=== PATIENT | female | born 1990 | race Caucasian/White ===

== ENCOUNTER 2016-07-31 14:08 | Emergency (ER) | payer MEDICAID, OTHER ==
[2016-07-31 17:47] LABS: Hematocrit 34 % (35-47); Hemoglobin 11.4 g/dl (12.0-16.0); Mean Corpuscular HGB Conc 34 g/dl (31-36); Mean Corpuscular Hemoglobin 28 pg (27-31); Mean Corpuscular Volume 83 fL (80-97); Mean Platelet Volume 10 um3 (7.4-10.4); Red Cell Distribution Width 13 % (10.5-15); White Blood Count 10.3 10^3/ul (3.5-10.8)
[2016-07-31 17:51] LABS: Urine Bacteria 1+ (Absent); Urine Bilirubin Negative (Negative); Urine Glucose Negative (Negative); Urine Nitrite Negative (Negative)
[2016-07-31 17:58] LABS: ALT 9 U/L (7-52); AST 15 U/L (13-39); Albumin 3.1 g/dL (3.2-5.2); Alkaline Phosphatase 49 U/L (34-104); Anion Gap 7 mmol/L (2-11); BUN/Creatinine Ratio 15.6 (8-20); Blood Urea Nitrogen 7 mg/dL (6-24); C Reactive Protein 6.68 mg/L (< 5.00); CO2 Carbon Dioxide 21 mmol/L (22-32); Calcium 9.2 mg/dL (8.6-10.3); Chloride 105 mmol/L (101-111); Creatine Kinase 24 U/L (10-223); EGFR African American 218.3 (>60); EGFR Non-African American 169.8 (>60); Globulin 3.2 g/dL (2-4); Glucose 104 mg/dL (70-100); Lipase 26 U/L (11.0-82.0); Potassium 3.7 mmol/L (3.5-5.0); Sodium 133 mmol/L (133-145); Total Protein 6.3 g/dL (6.4-8.9)
--- NOTE | 2016-07-31 18:15 | RAD ---
INDICATION: Bilateral tightness behind the knees. Leg swelling. COMPARISON: None. TECHNIQUE: Henriquez scale, color Doppler, and spectral analysis of the deep veins of the bilateral lower extremities. Vessel compression, phasicity, and augmentation assessed. REPORT: The right common femoral, great saphenous, profunda femoral, femoral, popliteal, peroneal, and posterior tibial veins are patent. The left common femoral, great saphenous, profunda femoral, femoral, popliteal, peroneal, and posterior tibial veins are patent. IMPRESSION: No evidence for right or left lower extremity deep venous thrombosis.
--- NOTE | 2016-07-31 19:24 | RAD ---
Indication: Chest pain. Shortness of breath. RIGHT leg pain and swelling. Elevated blood pressure. Comparison: None. Technique: Upright AP 1845 hours Report: Suboptimal inspiration with crowding of the pulmonary markings. Mild alveolar consolidation at the LEFT lung base may represent atelectasis or potentially pneumonia. Grossly clear pleural spaces. Negative for pneumothorax. The heart, pulmonary vasculature, and mediastinal contours are unremarkable. IMPRESSION: Mild alveolar consolidation at the LEFT lung base may represent atelectasis or potentially pneumonia. Consider standing PA and lateral chest radiographs for further assessment.
--- NOTE | 2016-07-31 19:32 | ED ---
- HPI Summary HPI Summary: Patient is a who is 24 weeks and 7 months post- with a CC of 2-3 weeks SOB, SAUCEDO, LUQ pain, leg swelling and "tightness" behind knees bilaterally. She delivered at 34 weeks with pre-eclampsia and was discharged home on 200mg labetolol BID. Dr. Vega was OBGYN. This , she is being seen in [place] for a high risk . She also has been dx with placenta previa. She notes to some foamy urine, but otherwise denies urinary symptoms. She is to have a kidney biopsy after delivery, but is unsure why. Today her BP's are ranging from 160/95 to 180/110. Denies fever. Denies visual disturbances. After calling her high risk OBGYN, she was sent here to r/o DVT's. Past medical history includes substance abuse. Denies current smoking, drugs or alcohol. UTD flu shot. Denies sick contacts. - History of Current Complaint Chief Complaint: EDExtremityLower Stated Complaint: 26WKS PREG/DIFF BREATHING/SWELLING Hx Obtained From: Patient Chief Complaint: Other: - concern for DVT's and pre-eclampsia Onset/Duration: Started Weeks Ago - 3 weeks ago Timing: Intermittent Severity: Moderate Current Severity: Moderate Pain Intensity: 4 Location of Pain: Left Side - upper quadrant Character: Cramping Aggravating Factors: Nothing Alleviating Factors: Nothing Associated Signs and Symptoms: Positive: Urinary Symptoms - foamy urine - Assessment Hx Now: Yes Expected Date of Delivery: 11/20/16 Hx : 4 Hx Para: 1 SAB: 2 IEA: 0 History of Ectopic : No Hx Pelvic Inflammatory Disease: No Vaginal Bleeding Amount: None Contraction Intensity: No Contractions Contraction Pattern: No Contractions Hx Hysterectomy: No History of STI/STD: No - Risk Factors Ovarian Torsion Risk Factor: Reproductive Age - Additional Pertinent History Referred By: Other - OBFYN in [place] Maternal Blood Type and Rh: O Positive Gestational Diabetes: No Have You Ever Been Treated for Depression: No - Allergies/Home Medications Allergies/Adverse Reactions: Allergies Allergy/AdvReac Type Severity Reaction Status Date / Time No Known Allergies Allergy Verified 06/28/16 17:03 PMH/Surg Hx/FS Hx/Imm Hx Previously Healthy: Yes Endocrine/Hematology History: Denies: Hx Diabetes, Hx Thyroid Disease Cardiovascular History: Denies: Hx Hypertension Respiratory History: Denies: Hx Asthma, Hx Chronic Obstructive Pulmonary Disease (COPD) GI History: Denies: Hx Ulcer History: Reports: Other Problems/Disorders - Proteinuria, in process of w/ u, preeclampsia Psychiatric History: Reports: Hx Depression - no record of treatment Denies: Hx Anxiety, Hx Attention Deficit Hyperactivity Disorder, Hx Eating Disorder, Hx Panic Disorder, Hx Post Traumatic Stress Disorder, Hx Inpatient Treatment, Hx Community Mental Health Tx, Hx Schizophrenia, Hx Bipolar Disorder , Hx Suicide Attempt, Hx of Violent Episodes Against Others, Hx Substance Abuse , Other Psychiatric Issues/Disorders - Immunization History Date of Tetanus Vaccine: up to date Infectious Disease History: No Infectious Disease History: Denies: Hx Hepatitis, Hx Human Immunodeficiency Virus (HIV), Traveled Outside the [place] in Last 30 Days - Family History Known Family History: Positive: None - denies heart disease, and dm Negative: Renal Disease - Social History Occupation: Unemployed Lives: Alone Alcohol Use: None Hx Substance Use: No Substance Use Type: Reports: None Hx Tobacco Use: No Smoking Status (MU): Never Smoked Tobacco Do You Chew or Dip Tobacco: No Have You Chewed or Dipped Tobacco in the LAST YEAR: No Have You Smoked in the Last Year: No Household Exposure: No Review of Systems Constitutional: Negative Eyes: Negative Cardiovascular: Negative Positive: Shortness Of Breath Positive: Abdominal Pain - LUQ Positive: other - foamy urine Positive: Edema - pedal edema Skin: Negative Neurological: Negative Positive: Anxious - regarding possibility of pre-eclampsia All Other Systems Reviewed And Are Negative: Yes Physical Exam - Physical Exam Triage Information Reviewed: Yes Vital Signs Reviewed: Yes Appearance: Positive: Well-Appearing, No Pain Distress, Well-Nourished Skin: Positive: Warm, Skin Color Reflects Adequate Perfusion Head/Face: Positive: Normal Head/Face Inspection Eyes: Positive: Normal, EOMI, KAI, Conjunctiva Clear Neck: Positive: Supple, Nontender, No Lymphadenopathy Respiratory/Lung Sounds: Positive: Clear to Auscultation, Breath Sounds Present Cardiovascular: Positive: Normal Abdomen Description: Positive: Soft, Other: - tenderness in LUQ upon palpation Musculoskeletal: Positive: Edema Left, Edema Right, Other - tenderness behind right popliteal Neurological: Positive: Normal, Facial Symmetry, Speech Normal Psychiatric: Positive: Anxious AVPU Assessment: Alert Diagnostics - Vital Signs Vital Signs Temp Pulse Resp BP Pulse Ox 07/31/16 18:30 90 22 176/106 97 07/31/16 18:00 87 28 174/98 97 07/31/16 17:30 79 28 166/103 98 07/31/16 17:00 93 21 160/94 99 07/31/16 16:37 19 165/87 07/31/16 15:01 98.4 F 101 18 181/110 100 - Laboratory Lab Results: Lab Results 07/31/16 07/31/16 07/31/16 Range/Units 16:45 16:45 16:45 WBC 10.3 (3.5-10.8) 10^3/ul RBC 4.10 (4.0-5.4) 10^6/ul Hgb 11.4 L (12.0-16.0) g/dl Hct 34 L (35-47) % MCV 83 (80-97) fL MCH 28 (27-31) pg MCHC 34 (31-36) g/dl RDW 13 (10.5-15) % Plt Count 178 (150-450) 10^3/ul MPV 10 (7.4-10.4) um3 Neut % (Auto) 70.8 (38-83) % Lymph % (Auto) 21.2 L (25-47) % [place] % (Auto) 6.5 (1-9) % Eos % (Auto) 1.2 (0-6) % Baso % (Auto) 0.3 (0-2) % Absolute Neuts (auto) 7.3 (1.5-7.7) 10^3/ul Absolute Lymphs (auto) 2.2 (1.0-4.8) 10^3/ul Absolute Monos (auto) 0.7 (0-0.8) 10^3/ul Absolute Eos (auto) 0.1 (0-0.6) 10^3/ul Absolute Basos (auto) 0 (0-0.2) 10^3/ul Absolute Nucleated RBC 0.01 10^3/ul Nucleated RBC % 0.1 INR (Anticoag Therapy) 0.93 (0.89-1.11) Sodium 133 (133-145) mmol/L Potassium 3.7 (3.5-5.0) mmol/L Chloride 105 (101-111) mmol/L Carbon Dioxide 21 L (22-32) mmol/L Anion Gap 7 (2-11) mmol/L BUN 7 (6-24) mg/dL Creatinine 0.45 L (0.51-0.95) mg/dL Est GFR ( Amer) 218.3 (>60) Est GFR (Non-Af Amer) 169.8 (>60) BUN/Creatinine Ratio 15.6 (8-20) Glucose 104 H (70-100) mg/dL Calcium 9.2 (8.6-10.3) mg/dL Total Bilirubin 0.20 (0.2-1.0) mg/dL Direct Bilirubin 0.00 L (0.03-0.18) mg/dL Indirect Bilirubin Not Reportable AST 15 (13-39) U/L ALT 9 (7-52) U/L Alkaline Phosphatase 49 (34-104) U/L Total Creatine Kinase 24 (10-223) U/L C-Reactive Protein 6.68 H (< 5.00) mg/L B-Natriuretic Peptide ( - 100) pg/mL Total Protein 6.3 L (6.4-8.9) g/dL Albumin 3.1 L (3.2-5.2) g/dL Globulin 3.2 (2-4) g/dL Albumin/Globulin Ratio 1.0 (1-3) Lipase 26 (11.0-82.0) U/L Urine Color Urine Appearance Urine pH (5-9) Ur Specific [place] (1.010-1.030) Urine Protein (Negative) Urine Ketones (Negative) Urine Blood (Negative) Urine Nitrate (Negative) Urine Bilirubin (Negative) Urine Urobilinogen (Negative) Ur Leukocyte Esterase (Negative) Urine WBC (Auto) (Absent) Urine RBC (Auto) (Absent) Ur Squamous Epith Cells (Absent) Urine Bacteria (Absent) Urine Glucose (Negative) 07/31/16 07/31/16 Range/Units 16:45 17:33 WBC (3.5-10.8) 10^3/ul RBC (4.0-5.4) 10^6/ul Hgb (12.0-16.0) g/dl Hct (35-47) % MCV (80-97) fL MCH (27-31) pg MCHC (31-36) g/dl RDW (10.5-15) % Plt Count (150-450) 10^3/ul MPV (7.4-10.4) um3 Neut % (Auto) (38-83) % Lymph % (Auto) (25-47) % [place] % (Auto) (1-9) % Eos % (Auto) (0-6) % Baso % (Auto) (0-2) % Absolute Neuts (auto) (1.5-7.7) 10^3/ul Absolute Lymphs (auto) (1.0-4.8) 10^3/ul Absolute Monos (auto) (0-0.8) 10^3/ul Absolute Eos (auto) (0-0.6) 10^3/ul Absolute Basos (auto) (0-0.2) 10^3/ul Absolute Nucleated RBC 10^3/ul Nucleated RBC % INR (Anticoag Therapy) (0.89-1.11) Sodium (133-145) mmol/L Potassium (3.5-5.0) mmol/L Chloride (101-111) mmol/L Carbon Dioxide (22-32) mmol/L Anion Gap (2-11) mmol/L BUN (6-24) mg/dL Creatinine (0.51-0.95) mg/dL Est GFR ( Amer) (>60) Est GFR (Non-Af Amer) (>60) BUN/Creatinine Ratio (8-20) Glucose (70-100) mg/dL Calcium (8.6-10.3) mg/dL Total Bilirubin (0.2-1.0) mg/dL Direct Bilirubin (0.03-0.18) mg/dL Indirect Bilirubin AST (13-39) U/L ALT (7-52) U/L Alkaline Phosphatase (34-104) U/L Total Creatine Kinase (10-223) U/L C-Reactive Protein (< 5.00) mg/L B-Natriuretic Peptide 42 ( - 100) pg/mL Total Protein (6.4-8.9) g/dL Albumin (3.2-5.2) g/dL Globulin (2-4) g/dL Albumin/Globulin Ratio (1-3) Lipase (11.0-82.0) U/L Urine Color Yellow Urine Appearance Cloudy Urine pH 5.0 (5-9) Ur Specific [place] 1.024 (1.010-1.030) Urine Protein 2+(100 mg/dl) H (Negative) Urine Ketones Negative (Negative) Urine Blood Negative (Negative) Urine Nitrate Negative (Negative) Urine Bilirubin Negative (Negative) Urine Urobilinogen Negative (Negative) Ur Leukocyte Esterase Trace H (Negative) Urine WBC (Auto) Trace(0-5/hpf) (Absent) Urine RBC (Auto) 1+(3-5/hpf) H (Absent) Ur Squamous Epith Cells Present H (Absent) Urine Bacteria 1+ H (Absent) Urine Glucose Negative (Negative) Result Diagrams: 07/31/16 16:45 07/31/16 16:45 Lab Statement: Any lab studies that have been ordered have been reviewed, and results considered in the medical decision making process. - Radiology No standard instances Xray Interpretation: No Acute Changes Radiology Interpretation Completed By: Radiologist - Ultrasound No standard instances Ultrasound Interpretation: No Acute Changes Ultrasound Interpretation Completed By: Radiologist Course/Dx - Course Course Of Treatment: Labs obtained. BP highest at 180/110. Higher risk d/t for DVT. US obtained with no acute findings. Consulted with OBGYN, Dr. White. Will transfer for further evaluation. Patient pre-eclamptic on previous resulting in early delivery at 34 weeks. Patient discharged with labetolol. Today, proteinuria at 2+, however did not use straight cath. Dr. Marianoki previous OBGYN. She is now being seen in [facility] for high risk . DVT unlikely d/ t negative US. No current medications for HTN. Will defer to OBGYN for further decision making. Hx of placenta previa. Assessment/Plan: OBGYN to see now. - Differential Diagnosis/HQI/PQRI: Preeclampsia, HELLP Syndrome, Placenta Previa, Early - Diagnoses Provider Diagnoses: High blood pressure affecting in second trimester, antepartum Discharge - Discharge Plan Condition: Stable Disposition: HOME Patient Education Materials: Preeclampsia (ED) Additional Instructions: You have been transferred to OBGYN care for further evaluation.
[2016-07-31 20:18] VITALS: BP 166/109
== END 2016-07-31 20:17 | disposition home or self-care (01) ==
LOC: ED 14:08
DX: O16.2 Unspecified maternal hypertension, second trimester (principal); Z3A.24 24 weeks gestation of pregnancy; O44.02 Complete placenta previa NOS or without hemorrhage, second trimester
CPT/HCPCS: 36415; 71010; 80053; 81003; 81015; 82248; 82550; 83690; 83880; 84550; 85025; 85610; 86140; 87086; 93970; 99282

== ENCOUNTER 2018-01-30 13:57 | Emergency (ER) | payer OTHER ==
--- OUTSIDE RECORDS SUMMARY | 2018-01-30 14:05 | XMS REPORT ---
:1990 External Reference #:[id number] Author Organization [facility] Address [address] [place] [address] Phone [phone] Care Team Providers Name Role Phone Jaspal Taylor MD Primary Care Physician Unavailable Payers Type Date Identification Numbers Payment Provider Subscriber Commercial Policy Number: [id number] Jamal [employer] Group Number: [id number] PayID: [id number] [place] [address] Problems Date Description Provider Status Onset: 01/17/2015 Depressive disorder Babatunde Varela NP Active Onset: 01/17/2015 Amenorrhea Babatunde Varela NP Active Note: states this has been a problem since menarche irregular menses Onset: 02/15/2015 Polycystic ovaries Babatunde Varela NP Active Note: PCOS Onset: 02/25/2016 Postconcussion syndrome Jaspal Taylor M.D. Active Onset: 02/25/2016 Posttraumatic headache Jaspal Taylor M.D. Active Onset: 04/30/2016 Patient currently Babautnde Varela NP Resolved Resolved: 10/09/2016 Onset: 08/02/2016 Gestational proteinuria Brandyn Mann M.D.,FACP Resolved Resolved: 10/09/2016 Family History Date Family Member(s) Problem(s) Comments Father Diabetes Type II Father 49 Father Hypertension Father Hypercholesterolemia Father Cerebrovascular Accident (CVA) Mother 47 Paternal Grandmother 75 Maternal Grandmother breast cancer Social History Type Date Description Comments Marital Status Single Lives With Alone Lives With Sons Occupation telemarketing and interviewer ETOH Use Denies alcohol use Smoking Patient is a former smoker Recreational Drug Use Denies Drug Use Daily Caffeine occasional soda Exercise Type/Frequency Does not exercise Allergies, Adverse Reactions, Alerts Date Description Reaction Status Severity Comments 01/17/2015 NKDA active Medications Medication Date Status Form Strength Qnty SIG Indications Ordering Provider Metformin HCL 01/06/ Active Tablets 500mg 30tab 1 by mouth Zsofia 2018 s every day PONCHO Márquez Accu-Check 01/05/ Active Device 1unit use devise E11.65 Zsofia Glucose Monitor 2018 s as Willi, instructed PONCHO Accu-Check 01/05/ Active Strips 200un check BS as E11.65 Sharmaineofia Compactstrips 2018 its ordered PONCHO Márquez Accu-Check 01/05/ Active Misc 100un use with E11.65 Sharmaineofia Kristin Lancet 2018 its glucometer Dasha Márquez as PONCHO instructed Fluconazole 12/15/ Active Tablets 150mg 2tabs one tab by N77.1 Zsofia 2018 mouth today, Willi, may repeat RAW SAMPLER in 3 days as needed Hydroxyzine HCL 12/15/ Active Tablets 25mg 30tab take one F41.9 Zsofia 2017 s tablet by Willi, mouth once RAW SAMPLER daily as needed Wellbutrin XL 12/15/ Active Tablets 150mg 30tab 1 tab po qd 2017 ER 24HR s in the Willi, morning RAW SAMPLER Anusol-HC 12/15/ Active Cream 2.5% 30gm apply to K62.5 2017 hemorrhoids Willi, 2x daily as RAW SAMPLER needed Hydrocodone-Immanuel 11/16/ Active Tablets 5-325mg 14tab 1 tab every H66.92 Jaspal taminophen 2018 s 8h as needed Casandra Taylor Hydroxyzine HCL 05/04/ Active Tablets 50mg 90tab take 1 tab F41.9 Zsofia 2018 s by mouth 3x Willi, daily for RAW SAMPLER anxiety as needed Hydroxyzine HCL 05/04/ Active Tablets 50mg 60tab take 1 tab F41.9 Zsofia 2018 s by mouth at [facility], night for RAW SAMPLER anxiety as needed Tylenol Extra 02/27/ Active Tablets 500mg 2 tablets by G44.301 Babatunde Strength 2016 mouth every Vincentian, 6 hours GSE MECHANIC three time a day as needed first Glipizide 01/05/ Hx Tablets 5mg 30tab take 1 E11.65 Zsofia 2018 - s tablet by Willi, 01/06/ mouth every RAW SAMPLER 2018 day after breakfast Amoxicillin/Cla 11/16/ Hx Tablets 875-125mg 20tab 1 by mouth H66.92 Jaspla vulanate 2018 - s twice a day Pachikara Potassium 12/15/ , Casandra 2017 Zoloft 07/02/ Hx Tablets 25mg 1 po qd; Other 2016 - Rx'd by high 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 Provider 2018 Hydrocodone-Immanuel 02/24/ Hx Tablets 5-325mg 20tab 1 tab every G44.301 Jaspal taminophen 2016 - s 12h as Pachikara 03/10/ needed , Casandra 2015 Wellbutrin XL 02/03/ Hx Tablets 150mg 90tab 1 tab po qd Babatunde 2016 - ER 24HR s in the Vincentian, 07/02/ morning GSE MECHANIC 2015 Provera 01/28/ Hx Tablets 10mg 10tab 1 tablet po Babatunde 2015 - s bid x's 5 Vincentian, 02/02/ days GSE MECHANIC 2014 Bupropion HCL 01/17/ Hx Tablets 150mg 60tab 1 tab by Babatunde ER (SR) 2015 - ER 12HR s mouth twice Vincentian, 02/03/ a day GSE MECHANIC 2015 Ventolin HFA / Hx Aerosol 108(90Base 2 puffs by Unknown 0000 - ) mcg/Act mouth four 02/03/ times a day 2016 as needed Labetalol HCL / Hx Tablets 200mg Kristel 0000 - Ilan 02/24/ 2016 Tramadol HCL / Hx Tablets 50mg 1 tablets Unknown 0000 - every 6 0816/ hours as 2016 needed Vital Signs Date Vital Result Comment 01/05/2018 Height 65 inches 5'5" Weight 198.38 lb Heart Rate 113 /min BP Systolic 126 mmHg BP Diastolic 80 mmHg O2 % BldC Oximetry 98 % BMI (Body Mass Index) 33.0 kg/m2 12/15/2017 Height 65 inches 5'5" Weight 199.12 lb Heart Rate 110 /min BP Systolic Sitting 122 mmHg BP Diastolic Sitting 80 mmHg O2 % BldC Oximetry 98 % BMI (Body Mass Index) 33.1 kg/m2 11/16/2017 Height 65 inches 5'5" Weight 199.00 lb Heart Rate 110 /min BP Systolic 124 mmHg BP Diastolic 80 mmHg Body Temperature 98.7 F O2 % BldC Oximetry 97 % BMI (Body Mass Index) 33.1 kg/m2 11/12/2017 Weight 190.00 lb per pt Heart Rate 111 /min BP Systolic Sitting 138 mmHg BP Diastolic Sitting 80 mmHg Body Temperature 97.3 F O2 % BldC Oximetry 96 % 03/10/2016 Weight 191.38 lb Heart Rate 102 /min BP Systolic Sitting 120 mmHg BP Diastolic Sitting 78 mmHg Body Temperature 98.0 F O2 % BldC Oximetry 98 % 02/28/2016 Height 65.5 inches 5'5.50" Weight 189.38 lb Heart Rate 92 /min BP Systolic Sitting 138 mmHg BP Diastolic Sitting 98 mmHg Body Temperature 98.3 F O2 % BldC Oximetry 99 % BMI (Body Mass Index) 31.0 kg/m2 02/25/2016 Height 65.5 inches 5'5.50" Weight 188.00 lb Heart Rate 110 /min BP Systolic Sitting 138 mmHg BP Diastolic Sitting 92 mmHg Body Temperature 97.9 F O2 % BldC Oximetry 98 % BMI (Body Mass Index) 30.8 kg/m2 02/04/2016 Height 65.5 inches 5'5.50" Weight 188.50 lb Heart Rate 102 /min BP Systolic Sitting 120 mmHg BP Diastolic Sitting 88 mmHg Body Temperature 97.4 F O2 % BldC Oximetry 96 % BMI (Body Mass Index) 30.9 kg/m2 02/14/2015 Height 65.5 inches 5'5.50" Weight 195.00 lb Heart Rate 112 /min BP Systolic Sitting 118 mmHg BP Diastolic Sitting 70 mmHg Body Temperature 98.0 F O2 % BldC Oximetry 98 % BMI (Body Mass Index) 32.0 kg/m2 01/17/2015 Height 65.5 inches 5'5.50" Weight 199.25 lb Heart Rate 100 /min BP Systolic Sitting 142 mmHg BP Diastolic Sitting 86 mmHg Body Temperature 97.7 F O2 % BldC Oximetry 98 % BMI (Body Mass Index) 32.6 kg/m2 Results Test Date Test Result H/L Range Note Laboratory test finding 01/05/2018 Hemoglobin A1c 9.6 High 5-7 Total Protein 24HR Urine 12/17/2017 Urine Collection Time 24 hr Urine Total Volume 2250 mL Urine Random Total Protein 43 mg/dL Urine Total Protein/24HR 967 mg/24Hr High 0-165 Creatinine Clearance 12/17/2017 Urine Collection Time 24 hr Urine Total Volume 2250 mL Creatinine 0.57 mg/dL 0.51-0.95 Urine Random Creatinine 81.20 mg/dL Creatinine Clearance 223 mL/min High 88-128 Laboratory test finding 12/17/2017 LDL Cholesterol Direct 64 mg/dL 1 Herpes Simplex Igm Screen Negative Negative 2 Lipid Profile (Trig/Chol/HDL) 12/17/2017 Triglycerides 729 mg/dL 3 Cholesterol 187 mg/dL 4 HDL Cholesterol 24.6 mg/dL 5 LDL Cholesterol (SEE NOTE) mg/dL 6 Comp Metabolic Panel 12/17/2017 Sodium 135 mmol/L Low 139-145 Potassium 4.3 mmol/L 3.5-5.0 Chloride 100 mmol/L Low 101-111 Co2 Carbon Dioxide 24 mmol/L 22-32 Anion Gap 11 mmol/L 2-11 Glucose 273 mg/dL High 70-100 Blood Urea Nitrogen 9 mg/dL 6-24 Creatinine 0.52 mg/dL 0.51-0.95 BUN/Creatinine Ratio 17.3 8-20 Calcium 9.8 mg/dL 8.6-10.3 Total Protein 7.6 g/dL 6.4-8.9 Albumin 4.4 g/dL 3.2-5.2 Globulin 3.2 g/dL 2-4 Albumin/Globulin Ratio 1.4 1-3 Total Bilirubin 1.40 mg/dL High 0.2-1.0 Alkaline Phosphatase 100 U/L 34-104 Alt 109 U/L High 7-52 Ast 102 U/L High 13-39 Egfr Non- 142.5 >60 Egfr 183.3 >60 7 Herpes Simplex Type 1&2 12/17/2017 Herpes Simplex Virus I Positive Negative Igg IgG AB Herpes Simplex Virus II IgG AB Positive Negative 8 Laboratory test 07/31/2016 Urine Protein 3+(>=500 mg/dL) Negative finding Urine Drug SCR ED & 07/31/2016 Amphetamine Ur Screen None Detected None Detect Pain Clinic Barbiturates Urine Screen None Detected None Detect Benzodiazepine Urine Screen None Detected None Detect Urine Cannabinoids Screen None Detected None Detect Urine Cocaine Screen None Detected None Detect Urine Opiates Screen None Detected None Detect Urine Phencyclidine Screen None Detected None Detect 9 Urine Culture And 07/31/2016 Urine Culture SEE RESULT BELOW 10 Sensitivities Laboratory test finding 07/31/2016 B-Type Natriuretic 42 pg/mL 11 Peptide BNP Uric Acid 6.0 mg/dL 2.3-6.6 Comp Metabolic Panel 07/31/2016 Sodium 133 mmol/L 133-145 Potassium 3.7 mmol/L 3.5-5.0 Chloride 105 mmol/L 101-111 Co2 Carbon Dioxide 21 mmol/L Low 22-32 Anion Gap 7 mmol/L 2-11 Glucose 104 mg/dL High 70-100 Blood Urea Nitrogen 7 mg/dL 6-24 Creatinine 0.45 mg/dL Low 0.51-0.95 BUN/Creatinine Ratio 15.6 8-20 Calcium 9.2 mg/dL 8.6-10.3 Total Protein 6.3 g/dL Low 6.4-8.9 Albumin 3.1 g/dL Low 3.2-5.2 Globulin 3.2 g/dL 2-4 Albumin/Globulin Ratio 1.0 1-3 Total Bilirubin 0.20 mg/dL 0.2-1.0 Alkaline Phosphatase 49 U/L 34-104 Alt 9 U/L 7-52 Ast 15 U/L 13-39 Egfr Non- 169.8 >60 Egfr 218.3 >60 12 Laboratory test finding 07/31/2016 Lipase 26 U/L 11.0-82.0 Creatine Kinase(CK) 24 U/L 10-223 C Reactive Protein 6.68 mg/L High < 5.00 13 Liver Function Panel 07/31/2016 Direct Bilirubin 0.00 mg/dL Low 0.03-0.18 Urinalysis Profile 07/31/2016 Urine Color Yellow Urine Appearance Cloudy Urine Specific Foley 1.024 1.010-1.030 Urine pH 5.0 5-9 Urine Urobilinogen Negative Negative Urine Ketones Negative Negative Urine Protein 2+(100 mg/dL) Negative Urine Leukocytes Trace Negative Urine Blood Negative Negative Urine Nitrite Negative Negative Urine Bilirubin Negative Negative Urine Glucose Negative Negative Urine White Blood Cell Trace(0-5/hpf) Absent Urine Red Blood Cell 1+(3-5/hpf) Absent Urine Bacteria 1+ Absent Urine Squamous Epithelial Cell Present Absent CBC Auto Diff 07/31/2016 White Blood Count 10.3 10^3/uL 3.5-10.8 Red Blood Count 4.10 10^6/uL 4.0-5.4 Hemoglobin 11.4 g/dL Low 12.0-16.0 Hematocrit 34 % Low 35-47 Mean Corpuscular Volume 83 fL 80-97 Mean Corpuscular Hemoglobin 28 pg 27-31 Mean Corpuscular HGB Conc 34 g/dL 31-36 Red Cell Distribution Width 13 % 10.5-15 Platelet Count 178 10^3/uL 150-450 Mean Platelet Volume 10 um3 7.4-10.4 Abs Neutrophils 7.3 10^3/uL 1.5-7.7 Abs Lymphocytes 2.2 10^3/uL 1.0-4.8 Abs Monocytes 0.7 10^3/uL 0-0.8 Abs Eosinophils 0.1 10^3/uL 0-0.6 Abs Basophils 0 10^3/uL 0-0.2 Abs Nucleated RBC 0.01 10^3/uL Granulocyte % 70.8 % 38-83 Lymphocyte % 21.2 % Low 25-47 Monocyte % 6.5 % 1-9 Eosinophil % 1.2 % 0-6 Basophil % 0.3 % 0-2 Nucleated Red Blood Cells % 0.1 Inr/Protime 07/31/2016 Inr 0.93 0.89-1.11 CBC Auto Diff 06/28/2016 White Blood Count 7.9 10^3/uL 3.5-10.8 Red Blood Count 4.15 10^6/uL 4.0-5.4 Hemoglobin 11.4 g/dL Low 12.0-16.0 Hematocrit 34 % Low 35-47 Mean Corpuscular Volume 82 fL 80-97 Mean Corpuscular Hemoglobin 28 pg 27-31 Mean Corpuscular HGB Conc 34 g/dL 31-36 Red Cell Distribution Width 14 % 10.5-15 Platelet Count 200 10^3/uL 150-450 Mean Platelet Volume 10 um3 7.4-10.4 Abs Neutrophils 5.2 10^3/uL 1.5-7.7 Abs Lymphocytes 1.9 10^3/uL 1.0-4.8 Abs Monocytes 0.6 10^3/uL 0-0.8 Abs Eosinophils 0.1 10^3/uL 0-0.6 Abs Basophils 0 10^3/uL 0-0.2 Abs Nucleated RBC 0 10^3/uL Granulocyte % 66.0 % 38-83 Lymphocyte % 23.6 % Low 25-47 Monocyte % 8.2 % 1-9 Eosinophil % 1.8 % 0-6 Basophil % 0.4 % 0-2 Nucleated Red Blood Cells % 0 Comp Metabolic Panel 06/28/2016 Sodium 133 mmol/L 133-145 Potassium 3.9 mmol/L 3.5-5.0 Chloride 104 mmol/L 101-111 Co2 Carbon Dioxide 21 mmol/L Low 22-32 Anion Gap 8 mmol/L 2-11 Glucose 92 mg/dL 70-100 Blood Urea Nitrogen 8 mg/dL 6-24 Creatinine 0.41 mg/dL Low 0.51-0.95 BUN/Creatinine Ratio 19.5 8-20 Calcium 9.3 mg/dL 8.6-10.3 Total Protein 6.7 g/dL 6.4-8.9 Albumin 3.4 g/dL 3.2-5.2 Globulin 3.3 g/dL 2-4 Albumin/Globulin Ratio 1.0 1-3 Total Bilirubin 0.30 mg/dL 0.2-1.0 Alkaline Phosphatase 53 U/L 34-104 Alt 8 U/L 7-52 Ast 11 U/L Low 13-39 Egfr Non- 189.0 >60 Egfr 243.1 >60 14 Urinalysis Profile 06/28/2016 Urine Color Yellow Urine Appearance Clear Urine Specific Foley 1.024 1.010-1.030 Urine pH 7.0 5-9 Urine Urobilinogen Negative Negative Urine Ketones Negative Negative Urine Protein 2+(100 mg/dL) Negative Urine Leukocytes Negative Negative Urine Blood Negative Negative Urine Nitrite Negative Negative Urine Bilirubin Negative Negative Urine Glucose Negative Negative Urine White Blood Cell Trace(0-5/hpf) Absent Urine Red Blood Cell Trace(0-2/hpf) Absent Urine Bacteria 1+ Absent Urine Squamous Epithelial Cell Present Absent Urine Culture And 06/28/2016 Urine Culture SEE RESULT BELOW 15 Sensitivities Creatinine Clearance 05/10/2016 Urine Collection Time 24 Urine Total Volume 900 mL Urine Random Creatinine 210.57 mg/dL Creatinine 0.44 mg/dL Low 0.51-0.95 Creatinine Clearance 299 mL/min High 88-128 Urinalysis Profile 04/23/2016 Urine Color Yellow Urine Appearance Cloudy Urine Specific Foley 1.029 1.010-1.030 Urine pH 5.0 5-9 Urine Urobilinogen Negative Negative Urine Ketones Trace Negative Urine Protein 3+(>=500 mg/dL) Negative Urine Leukocytes Negative Negative Urine Blood Negative Negative Urine Nitrite Negative Negative Urine Bilirubin Negative Negative Urine Glucose Negative Negative Urine White Blood Cell Trace(0-5/hpf) Absent Urine Red Blood Cell 1+(3-5/hpf) Absent Urine Bacteria Absent Absent Urine Squamous Epithelial Cell Present Absent Urine Hyaline Casts Present Absent Laboratory test finding 02/04/2016 Test Urine negative CBC Auto Diff 12/28/2015 White Blood Count 10.1 10^3/uL 3.5-10.8 Red Blood Count 4.13 10^6/uL 4.0-5.4 Hemoglobin 11.8 g/dL Low 12.0-16.0 Hematocrit 35 % 35-47 Mean Corpuscular Volume 84 fL 80-97 Mean Corpuscular Hemoglobin 29 pg 27-31 Mean Corpuscular HGB Conc 34 g/dL 31-36 Red Cell Distribution Width 14 % 10.5-15 Platelet Count 185 10^3/uL 150-450 Mean Platelet Volume 10 um3 7.4-10.4 Abs Neutrophils 7.7 10^3/uL 1.5-7.7 Abs Lymphocytes 1.7 10^3/uL 1.0-4.8 Abs Monocytes 0.6 10^3/uL 0-0.8 Abs Eosinophils 0.1 10^3/uL 0-0.6 Abs Basophils 0.1 10^3/uL 0-0.2 Abs Nucleated RBC 0 10^3/uL Granulocyte % 76.0 % 38-83 Lymphocyte % 16.7 % Low 25-47 Monocyte % 5.6 % 1-9 Eosinophil % 0.6 % 0-6 Basophil % 1.1 % 0-2 Nucleated Red Blood Cells % 0 Urinalysis Profile 12/28/2015 Urine Color Saranya Urine Appearance Cloudy Urine Specific Foley 1.034 High 1.010-1.030 Urine pH 6.0 5-9 Urine Urobilinogen Negative Negative Urine Ketones Negative Negative Urine Protein 3+(>=500 mg/dL) Negative Urine Leukocytes Negative Negative Urine Blood Negative Negative Urine Nitrite Negative Negative Urine Bilirubin Negative Negative Urine Glucose Negative Negative Urine White Blood Cell 1+(6-10/hpf) Absent Urine Red Blood Cell 1+(3-5/hpf) Absent Urine Bacteria Absent Absent Urine Squamous Epithelial Cell Present Absent Urine Hyaline Casts Present Absent Comp Metabolic Panel 12/28/2015 Sodium 134 mmol/L 133-145 Potassium 4.2 mmol/L 3.5-5.0 Chloride 106 mmol/L 101-111 Co2 Carbon Dioxide 23 mmol/L 22-32 Anion Gap 5 mmol/L 2-11 Glucose 73 mg/dL 70-100 Blood Urea Nitrogen 6 mg/dL 6-24 Creatinine 0.49 mg/dL Low 0.51-0.95 BUN/Creatinine Ratio 12.2 8-20 Calcium 8.6 mg/dL 8.6-10.3 Total Protein 5.6 g/dL Low 6.4-8.9 Albumin 2.7 g/dL Low 3.2-5.2 Globulin 2.9 g/dL 2-4 Albumin/Globulin Ratio 0.9 Low 1-3 Total Bilirubin 0.40 mg/dL 0.2-1.0 Alkaline Phosphatase 64 U/L 34-104 Alt 14 U/L 7-52 Ast 16 U/L 13-39 Egfr Non- 155.2 >60 Egfr 199.5 >60 16 CBC Auto Diff 08/30/2015 White Blood Count 10.5 10^3/uL 3.5-10.8 Red Blood Count 3.90 10^6/uL Low 4.0-5.4 Hemoglobin 11.2 g/dL Low 12.0-16.0 Hematocrit 33 % Low 35-47 Mean Corpuscular Volume 85 fL 80-97 Mean Corpuscular Hemoglobin 29 pg 27-31 Mean Corpuscular HGB Conc 34 g/dL 31-36 Red Cell Distribution Width 13 % 10.5-15 Platelet Count 191 10^3/uL 150-450 Mean Platelet Volume 10 um3 7.4-10.4 Abs Neutrophils 7.5 10^3/uL 1.5-7.7 Abs Lymphocytes 2.4 10^3/uL 1.0-4.8 Abs Monocytes 0.5 10^3/uL 0-0.8 Abs Eosinophils 0.1 10^3/uL 0-0.6 Abs Basophils 0 10^3/uL 0-0.2 Abs Nucleated RBC 0.01 10^3/uL Granulocyte % 71.1 % 38-83 Lymphocyte % 23.0 % Low 25-47 Monocyte % 4.8 % 1-9 Eosinophil % 0.9 % 0-6 Basophil % 0.2 % 0-2 Nucleated Red Blood Cells % 0.1 Urinalysis Profile 08/30/2015 Urine Color Yellow Urine Appearance Cloudy Urine Specific Foley 1.025 1.010-1.030 Urine pH 5.0 5-9 Urine Urobilinogen Negative Negative Urine Ketones 1+ Negative Urine Protein Negative Negative Urine Leukocytes Negative Negative Urine Blood Negative Negative Urine Nitrite Negative Negative Urine Bilirubin Negative Negative Urine Glucose Negative Negative Comp Metabolic Panel 08/30/2015 Sodium 135 mmol/L 133-145 Potassium 3.6 mmol/L 3.5-5.0 Chloride 104 mmol/L 101-111 Co2 Carbon Dioxide 22 mmol/L 22-32 Anion Gap 9 mmol/L 2-11 Glucose 112 mg/dL High 70-100 Blood Urea Nitrogen 6 mg/dL 6-24 Creatinine 0.46 mg/dL Low 0.51-0.95 BUN/Creatinine Ratio 13.0 8-20 Calcium 9.3 mg/dL 8.6-10.3 Total Protein 6.6 g/dL 6.4-8.9 Albumin 3.8 g/dL 3.2-5.2 Globulin 2.8 g/dL 2-4 Albumin/Globulin Ratio 1.4 1-3 Total Bilirubin 0.30 mg/dL 0.2-1.0 Alkaline Phosphatase 41 U/L 34-104 Alt 11 U/L 7-52 Ast 14 U/L 13-39 Egfr Non- 166.9 >60 Egfr 214.6 >60 17 Laboratory test finding 06/27/2015 Abo/RH Type O Positive 18 Beta HCG (BHCG) Quantitative 96360.00 mIU/mL <5 18, 19 CBC No Diff 06/27/2015 White Blood Count 11.4 10^3/uL High 3.5-10.8 18 Red Blood Count 4.71 10^6/uL 4.0-5.4 18 Hemoglobin 13.0 g/dL 12.0-16.0 18 Hematocrit 41 % 35-47 18 Mean Corpuscular Volume 87 fL 80-97 18 Mean Corpuscular Hemoglobin 28 pg 27-31 18 Mean Corpuscular HGB Conc 32 g/dL 31-36 18 Red Cell Distribution Width 13 % 10.5-15 18 Platelet Count 205 10^3/uL 150-450 18 Mean Platelet Volume 10 um3 7.4-10.4 18 Basic Metabolic Panel 06/27/2015 Sodium 134 mmol/L 133-145 18 Potassium 3.8 mmol/L 3.5-5.0 18 Chloride 102 mmol/L 101-111 18 Co2 Carbon Dioxide 22 mmol/L 22-32 18 Anion Gap 10 mmol/L 2-11 18 Glucose 110 mg/dL High 70-100 18 Blood Urea Nitrogen 11 mg/dL 6-24 18 Creatinine 0.53 mg/dL 0.51-0.95 18 BUN/Creatinine Ratio 20.8 High 8-20 18 Calcium 9.0 mg/dL 8.6-10.3 18 Egfr Non- 141.7 >60 18 Egfr 182.3 >60 18, 20 FSH And LH 02/13/2015 FSH (Follicle Stim Hormone) 5.3 mIU/mL 21 LH (Lutenizing Hormone) 5.1 ?IU/mL 22 Testosterone Free & Total 02/13/2015 Free Testosterone ng/dl 0.7 ng/dL 0.3-1.9 23 Testosterone 20 ng/dL 8-60 24 Laboratory test finding 02/13/2015 Prolactin 12.7 ng/mL 1.0-25.0 Dhea Sulfate 144 g/dL 44-332 25 Lipid Profile (Trig/Chol/HDL) 01/18/2015 Triglycerides 237 mg/dL 26 Cholesterol 161 mg/dL 27 HDL Cholesterol 26.9 mg/dL 28 LDL Cholesterol 87 mg/dL 29 Basic Metabolic Panel 01/18/2015 Sodium 136 mmol/L 133-145 Potassium 4.0 mmol/L 3.5-5.0 Chloride 104 mmol/L 101-111 Co2 Carbon Dioxide 26 mmol/L 22-32 Anion Gap 6 mmol/L 2-11 Blood Urea Nitrogen 9 mg/dL 6-24 Creatinine 0.53 mg/dL 0.51-0.95 BUN/Creatinine Ratio 17.0 8-20 Calcium 9.1 mg/dL 8.6-10.3 Egfr Non- 143.0 >60 Egfr 183.8 >60 30 Laboratory test finding 01/18/2015 TSH (Thyroid Stim Horm) 1.13 ?IU/mL 0.34-5.60 31 CBC Auto Diff 01/18/2015 White Blood Count 9.1 10^3/uL 4.8-10.8 Red Blood Count 4.57 10^6/uL 4.0-5.4 Hemoglobin 12.9 g/dL 12.0-16.0 Hematocrit 40 % 35-47 Mean Corpuscular Volume 87 fL 80-97 Mean Corpuscular Hemoglobin 28 pg 27-31 Mean Corpuscular HGB Conc 33 g/dL 31-36 Red Cell Distribution Width 13 % 10.5-15 Platelet Count 229 10^3/uL 150-450 Mean Platelet Volume 10 um3 7.4-10.4 Abs Neutrophils 5.8 10^3/uL 1.5-7.7 Abs Lymphocytes 2.4 10^3/uL 1.0-4.8 Abs Monocytes 0.6 10^3/uL 0-0.8 Abs Eosinophils 0.2 10^3/uL 0-0.6 Abs Basophils 0 10^3/uL 0-0.2 Abs Nucleated RBC 0 10^3/uL Granulocyte % 63.8 % 38-83 Lymphocyte % 27.0 % 25-47 Monocyte % 6.5 % 1-9 Eosinophil % 2.3 % 0-6 Basophil % 0.4 % 0-2 Nucleated Red Blood Cells % 0 Laboratory test finding 01/18/2015 Glucose 102 mg/dL High 70-100 Laboratory test finding 01/17/2015 Cytology SEE RESULT BELOW 32 Gardnerella/Yeast: Vaginal Dna SEE RESULT BELOW 33 GC/Chlamydia Amplified Rna 01/17/2015 Chlamydia trachomatis Rna Negative Negative Neisseria gonorrhoeae (GC) Rna Negative Negative 34 Laboratory test finding 01/17/2015 Trichomonas vaginalis Rna Negative Negative 35 Laboratory test finding 01/17/2015 Test Urine negative Ua Routine 01/17/2015 Ua Specific Foley 1.020 Ua PH 5 Ua Color yellow Ua Appera clear Ua WBC neg Ua Protein neg Ua Glucose neg Ua Ketones neg Ua Bilirubin neg Ua Urobilinogen normal Ua Nitrite neg Ua Occult Blood neg 1 Desirable: <100 Near Optimal: 100-129 Borderline High: 130-159 High: 160-189 Very High: >189 2 ADDITIONAL INFORMATION This test has been modified from the drop press hand's instructions. Its performance characteristics were determined by [facility] in a manner consistent with CLIA requirements. This test has not been cleared or approved by the U.S. Food and Drug Administration. Test Performed by: [facility] [address] [place] [address] 3 Desirable: <150 Borderline High: 150-199 High: 200-499 Very High: >500 4 Desirable: <200 Borderline High: 200-239 High: >239 5 Low: <40 Desirable: 40-60 High: >60 6 Unable to calculate LDL as triglyceride is > 400 7 Because ethnic data is not always readily available, this report includes an eGFR for both -Americans and non- Americans. The National Kidney Disease Education Program (NKDEP) does not endorse the use of the MDRD equation for patients that are not between the ages of 18 and 70, are , have extremes of body size, muscle mass, or nutritional status, or are non- or non-. According to the National Kidney Foundation, irrespective of diagnosis, the stage of the disease is based on the level of kidney function: Stage Description GFR(mL/min/1.73 m(2)) 1 Kidney damage with normal or decreased GFR 90 2 Kidney damage with mild decrease in GFR 60-89 3 Moderate decrease in GFR 30-59 4 Severe decrease in GFR 15-29 5 Kidney failure <15 (or dialysis) 8 Test Performed by: [facility] [address] [place] [address] 9 The urine specimen was tested at the listed cutoffs: Drug class test level (ng/mL) Amphetamines 500 Barbiturates 200 Benzodiazepine metabolites 200 Cocaine metabolites 150 Cannabinoids 50 Opiates 300 Pcp 25 Specimen was received without chain of custody. Results should be used for medical purposes only. 10 SEE RESULT BELOW Name: SARANYA ELWIS : [address]: Patrick Horton MD Acct: [id number] Unit: [id number] AGE: 26 Location: ED Re07/31/16 SEX: F Status: DEP ER SPEC: [id number] RYAN: 07/31/16-[address]: Leslye W[place] REQ: [id number] RECD: 07/31/16 STATUS: BRADLEY FARIAS DR: Brandyn Horton MD _ SOURCE: URINE [facility]: ORDERED: Urine Culture Procedure Result Reported Site Urine Culture Final 08/02/16- 0940 ML No Growth (<1,000 CFU/mL) * ML - MAIN LAB ([facility]) . END OF REPORT * ML=Testing performed at Main Lab DEPARTMENT OF PATHOLOGY, [address] [place] [address] Sammy Hart M.D. Director [facility] # [id number] 11 >100 to <200 pg/mL: likely compensated congestive heart failure (CHF) 200 to 400 pg/mL: likely moderate CHF >400 pg/mL: likely moderate to severe CHF 12 Because ethnic data is not always readily available, this report includes an eGFR for both -Americans and non- Americans. The National Kidney Disease Education Program (NKDEP) does not endorse the use of the MDRD equation for patients that are not between the ages of 18 and 70, are , have extremes of body size, muscle mass, or nutritional status, or are non- or non-. According to the National Kidney Foundation, irrespective of diagnosis, the stage of the disease is based on the level of kidney function: Stage Description GFR(mL/min/1.73 m(2)) 1 Kidney damage with normal or decreased GFR 90 2 Kidney damage with mild decrease in GFR 60-89 3 Moderate decrease in GFR 30-59 4 Severe decrease in GFR 15-29 5 Kidney failure <15 (or dialysis) 13 Acute inflammation: >10.00 14 Because ethnic data is not always readily available, this report includes an eGFR for both -Americans and non- Americans. The National Kidney Disease Education Program (NKDEP) does not endorse the use of the MDRD equation for patients that are not between the ages of 18 and 70, are , have extremes of body size, muscle mass, or nutritional status, or are non- or non-. According to the National Kidney Foundation, irrespective of diagnosis, the stage of the disease is based on the level of kidney function: Stage Description GFR(mL/min/1.73 m(2)) 1 Kidney damage with normal or decreased GFR 90 2 Kidney damage with mild decrease in GFR 60-89 3 Moderate decrease in GFR 30-59 4 Severe decrease in GFR 15-29 5 Kidney failure <15 (or dialysis) 15 SEE RESULT BELOW Name: SARANYA LEWIS : [address]: Андрей Lezama MD Acct: [id number] Unit: [id number] AGE: 26 Location: ED Re06/28/16 SEX: F Status: DEP ER SPEC: [id number] RYAN: 06/28/16-[address]: Vashti WASHINGTON REQ: [id number] RECD: 06/28/16 STATUS: BRADLEY FARIAS DR: Papo Oneill MD _ SOURCE: URINE SPDESC: ORDERED: Urine Culture Procedure Result Reported Site Urine Culture Final 06/29/16- 1712 ML No Growth (<1,000 CFU/mL) * ML - MAIN LAB ([facility]) . END OF REPORT * ML=Testing performed at Main Lab DEPARTMENT OF PATHOLOGY, [address] [place] [address] Sammy Hart M.D. Director [facility] # [id number] 16 Because ethnic data is not always readily available, this report includes an eGFR for both -Americans and non- Americans. The National Kidney Disease Education Program (NKDEP) does not endorse the use of the MDRD equation for patients that are not between the ages of 18 and 70, are , have extremes of body size, muscle mass, or nutritional status, or are non- or non-. According to the National Kidney Foundation, irrespective of diagnosis, the stage of the disease is based on the level of kidney function: Stage Description GFR(mL/min/1.73 m(2)) 1 Kidney damage with normal or decreased GFR 90 2 Kidney damage with mild decrease in GFR 60-89 3 Moderate decrease in GFR 30-59 4 Severe decrease in GFR 15-29 5 Kidney failure <15 (or dialysis) 17 Because ethnic data is not always readily available, this report includes an eGFR for both -Americans and non- Americans. The National Kidney Disease Education Program (NKDEP) does not endorse the use of the MDRD equation for patients that are not between the ages of 18 and 70, are , have extremes of body size, muscle mass, or nutritional status, or are non- or non-. According to the National Kidney Foundation, irrespective of diagnosis, the stage of the disease is based on the level of kidney function: Stage Description GFR(mL/min/1.73 m(2)) 1 Kidney damage with normal or decreased GFR 90 2 Kidney damage with mild decrease in GFR 60-89 3 Moderate decrease in GFR 30-59 4 Severe decrease in GFR 15-29 5 Kidney failure <15 (or dialysis) 18 8 WKS /VOMITING 19 <5.0 Negative 5.0 - 25.0 Indeterminate (Repeat testing recommended after 72 hours) >25.0 Positive Perimenopausal women can display HCG levels of up to 20 mIU/mL 20 Because ethnic data is not always readily available, this report includes an eGFR for both -Americans and non- Americans. The National Kidney Disease Education Program (NKDEP) does not endorse the use of the MDRD equation for patients that are not between the ages of 18 and 70, are , have extremes of body size, muscle mass, or nutritional status, or are non- or non-. According to the National Kidney Foundation, irrespective of diagnosis, the stage of the disease is based on the level of kidney function: Stage Description GFR(mL/min/1.73 m(2)) 1 Kidney damage with normal or decreased GFR 90 2 Kidney damage with mild decrease in GFR 60-89 3 Moderate decrease in GFR 30-59 4 Severe decrease in GFR 15-29 5 Kidney failure <15 (or dialysis) 21 Normally menstruating females - Follicular phase 3 - 9 - Mid-cycle peak 4 - 23 - Luteal phase 1 - 6 Postmenopausal females 16 - 114 22 Normally menstruating females - Follicular Phase 1 - 18 - Mid-Cycle Peak 24 - 105 - Luteal Phase 0.6 - 20 Postmenopausal females 15 - 62 23 ADDITIONAL INFORMATION Testing performed by [facility]. 24 ADDITIONAL INFORMATION Testing performed by Liquid Chromatography-Tandem Mass Spectrometry (LC-MS/MS). Test Performed by: [place] [address] Secretarial Teacher: Patrick Pozo II, M.D., Ph.D. 25 Test Performed by: [address] [address] Secretarial Teacher: Patrick Pozo II, M.D., Ph.D. 26 Desirable <150 Borderline high 150-199 High 200-499 Very High >500 27 Desirable <200 Borderline high 200-239 High >239 28 Low <40 Desirable: 40-60 High: >60 29 Desirable: <100 mg/dL Near Optimal: 100-129 mg/dL Borderline High: 130-159 mg/dL High: 160-189 mg/dL Very High: >189 mg/dL 30 Because ethnic data is not always readily available, this report includes an eGFR for both -Americans and non- Americans. The National Kidney Disease Education Program (NKDEP) does not endorse the use of the MDRD equation for patients that are not between the ages of 18 and 70, are , have extremes of body size, muscle mass, or nutritional status, or are non- or non-. According to the National Kidney Foundation, irrespective of diagnosis, the stage of the disease is based on the level of kidney function: Stage Description GFR(mL/min/1.73 m(2)) 1 Kidney damage with normal or decreased GFR 90 2 Kidney damage with mild decrease in GFR 60-89 3 Moderate decrease in GFR 30-59 4 Severe decrease in GFR 15-29 5 Kidney failure <15 (or dialysis) 31 FASTING 10 HOUR 32 SEE RESULT BELOW Name: JOSHUASARANYA Nicolas : [address]: Babatunde Varela NP Acct: [id number] Unit: [id number] AGE: 24 Location: [facility] Re01/17/15 SEX: F Status: REG REF SPEC: [id number] RYAN: 01/17/15-[address]: Babatunde Varela GSE MECHANIC REQ: [id number] RECD: 01/17/15-1241 STATUS: SOUT _ ORDERED: IMAGE ANALYSIS FINAL DIAGNOSIS Negative for Intraepithelial lesion or Malignancy A. Ectocervical/Endocervical Specimen Adequacy: Satisfactory of evaluation Transformation zone component identified Patient Information: HPV: Thin Layer Pap Test w/reflex to high risk HPV RNA testing when ASCUS HPV 16/18 Genotype for HPV pos Actual Specimen Date: 01/17/15 LMP If Unknown: unknown Spec Date if unknown: unknown ?: N Post Menopausal?: N Hysterectomy?: N Previous Abnormal Pap Smears?:N Signed (signature on file) MENDY Banegas (ASCP) 01/18 1429 This Pap test was evaluated with the assistance of the [employer] Test Imaging System. Due to cytologic findings at the ramp lead microscope, comprehensive manual rescreening by a Insurance Marketing Specialist may be required. The Pap Smear is a screening test designed to aid in the detection of premalignant and malignant conditions of the uterine cervix. It is not a diagnostic procedure and should not be used as the sole means of detecting cervical cancer. Both false- positive and false- negative reports do occur. Depending on your risk status, a Pap smear should be obtained and evaluated every 1-3 years. END OF REPORT * ML=Testing performed at Main Lab DEPARTMENT OF PATHOLOGY, [address] [place] [address] Sammy Hart M.D. Director [facility] # [id number] 33 SEE RESULT BELOW Name: SARANYA LEWIS : [address]: Babatunde Varela GSE MECHANIC Acct: [id number] Unit: [id number] AGE: 24 Location: [facility] Re01/17/15 SEX: F Status: REG REF SPEC: [id number] RYAN: 01/17/15-[address]: Babatunde Varela NP REQ: [id number] RECD: 01/17/15-1241 STATUS: COMP _ SOURCE: VAGINAL SPDESC: ORDERED: Arvind,Yeast DNA Procedure Result Verified Site Gardnerella/Yeast: Vaginal DNA Final 01/18/15- 1106 ML Organism 1 Negative Carmen Organism 2 Negative Gardnerella The presence of G. vaginalis, although suggestive, is not diagnostic for bacterial vaginosis. Results should be interpreted in conjuction with other clinical and laboratory data available. Women with vaginal discharge should be evaluated for risk factors of cervicitis and pelvic inflammatory disease, toxic shock syndrome (S.aureus), and if present, evaluated for organisms not included in this assay such as N. gonorrhoeae, C. trachomatis, Mobiluncus, Mycoplasma and/or Prevotella. Mixed infections may occur. The performance of this test on patient specimens collected during or immediately after antimicrobial therapy is unknown. The presence or absence of Carmen species, or G. vaginalis cannot be used as a test for therapeutic success or failure. * ML - MAIN LAB ([facility]) . END OF REPORT * ML=Testing performed at Main Lab DEPARTMENT OF PATHOLOGY, [address] [place] [address] Sammy Hart M.D. Director [facility] # [id number] 34 Female urine specimens have been self-validated by [facility] and have been granted conditional assay approval by [facility]. 35 GC/Chlamydia Source?: Endocervical Trichomonas Source: Endocervical Procedures Description No Information Encounters Type Date Location Provider CPT E/M Dx Office Visit 12/15/2017 1:00p [facility] Internal Medicine PONCHO Parker [address] [address]14[address] K62.5 N77.1 F41.9 Z13.220 B34.9 R80.9 Z87.59 K64.4 Office Visit 11/16/2017 10:00a [facility] Internal Jaspal Taylor [address] H66.92 Medicine - [address] Christofer Guajardo Office Visit 11/12/2017 2:20p [facility] Internal PONCHO Parker [address] F41.9 Medicine - [address] F43.10 Office Visit 03/10/2016 12:40p [facility] Internal Medicine - Babatunde Varela, EDUIN [address] G44.319 Office Visit 02/28/2016 2:40p [facility] Internal Medicine - Babatunde Vincentian, GSE MECHANIC [address] G44.301 G44.319 Office Visit 02/25/2016 3:40p [facility] Internal Jaspal Taylor, [address] F07.81 Medicine - [address] MJorge G44.301 Office Visit 02/04/2016 9:40a [facility] Internal Medicine - Babatunde Varela, GSE MECHANIC [address] Office Visit 02/14/2015 10:30a [facility] Internal Medicine [facility] Vincentian, GSE MECHANIC [address] 311 272.1 790.21 628.9 626.0 Office Visit 01/17/2015 10:00a [facility] Internal Medicine Babatunde Varela, GSE MECHANIC [address] V72.31 V70.0 311 V77.1 V77.91 626.0 Plan of Care Future Appointment(s):02/09/2018 1:00 pm - PONCHO Parker at [facility] Internal Medicine - [address]/05/2018 - TANNER ParkerPE11.65 Type 2 diabetes mellitus with hyperglycemiaNew Medication:Accu-Check Glucose MonitorAccu-Check CompactstripsAccu-Check Kristin Lancet DrumsGlipizide 5 mgReferral:Felicity Guevara CNM, Ore Miner/RNFollow up:4 sioicG27.8 Abnormal levels of other serum yxcibhxU30.9 Nephrotic syndrome with unspecified morphologic olrpbbmV19.4 Other awiaeklpnsgiezR38.9 Proteinuria, unspecified
[2018-01-30] MEDS ORDERED: Ondansetron ODT TAB* 4 MG PO ONE (15:00)
--- NOTE | 2018-01-30 15:21 | UC ---
Abdominal Pain Female HPI - HPI Summary HPI Summary: This is deondre Guerrero documenting for attending Stephania Childress MD. This patient is a 28 year old F presenting to [facility] with a chief complaint of intermittent cramping epigastric pain and flank pain every 5 minutes since 5 days ago. The patient rates the pain 9/10 in severity. Symptoms aggravated by bowel movements. Symptoms alleviated by nothing. Patient reports nausea, vomiting, dizziness, fever, chills, diarrhea earlier in the week, constipation today. Patient denies dysuria, frequency, or urgency with urination. Patient has hx of chronic kidney disease. Patient also notes hx of liver problems but does not yet have a diagnosis. Patient was recently diagnosed with diabetes. Patient takes Metformin and Wellbutrin. - History of Current Complaint Chief Complaint: UCAbdominalPain Stated Complaint: VOMITING ABD PAIN Time Seen by Provider: 01/30/18 14:51 Hx Obtained From: Patient Hx Last Menstrual Period: 01/04/18 Onset/Duration: Sudden Onset, Lasting Days - 5 days Timing: Intermittent Episodes Lasting: Severity Initially: Moderate Severity Currently: Moderate Pain Intensity: 9 Pain Scale Used: 0-10 Numeric Location: Epigastric Radiates to: Flank Character: Cramping Aggravating Factor(s): Other: - bowel movements Alleviating Factor(s): Nothing Associated Signs and Symptoms: Positive: Negative - negative dysuria, negative frequency of urination, negative urgency of urination, Constipation, Decreased Appetite, Nausea, Vomiting, Diarrhea Allergies/Adverse Reactions: Allergies Allergy/AdvReac Type Severity Reaction Status Date / Time No Known Allergies Allergy Verified 01/30/18 14:21 Home Medications: Home Medications Metformin HCl 500 mg PO DAILY WITH MEAL 01/30/18 [History Confirmed 01/30/18] buPROPion HCl [Bupropion HCl Sr] 150 mg PO DAILY WITH MEAL 01/30/18 [History Confirmed 01/30/18] PMH/Surg Hx/FS Hx/Imm Hx Endocrine History: Diabetes GI/ History: Renal Disease - chronic kidney disease, Other Other GI/ History: hepatomegaly - Surgical History Surgical History: None Surgery Procedure, Year, and Place: 2 c sections- , 2016 - Family History Known Family History: Positive: None - denies heart disease, and dm Negative: Renal Disease - Social History Alcohol Use: Rare Substance Use Type: None Smoking Status (MU): Never Smoked Tobacco Have You Smoked in the Last Year: No - Immunization History Most Recent Influenza Vaccination: current Most Recent Tetanus Shot: 11/11/2015 Most Recent Pneumonia Vaccination: never Review of Systems Constitutional: Fever, Chills ENT: Negative - negative epistaxis Gastrointestinal: Abdominal Pain, Vomiting, Diarrhea, Nausea, Other - bilateral flank pain, constipation Genitourinary: Negative - negative dysuria, negative urgency, negative frequency All Other Systems Reviewed And Are Negative: Yes Physical Exam - Summary Physical Exam Summary: Appearance: Well-appearing, Well-nourished Skin: Warm Eyes: Normal ENT: Normal Neck: Supple, nontender Respiratory: Clear to auscultation Cardiovascular: Regular rate, regular rhythm. Normal S1, S2. Abdomen: Soft, mild bilateral flank, mild left CVA tenderness, negative suprapubic tenderness, denies dysuria or frequency of urination Musculoskeletal: Normal, Strength/ROM Intact Neurological: Normal, A&Ox3 Psychiatric: Normal General: No acute distress Triage Information Reviewed: Yes Vital Signs: Initial Vital Signs Temp 96.6 F 01/30/18 14:15 Pulse 114 01/30/18 14:15 Resp 20 01/30/18 14:15 BP 146/98 01/30/18 14:15 Pulse Ox 100 01/30/18 14:15 Vital Signs Reviewed: Yes Diagnostics - Radiology CT Abd/ Xray Interpretation: No Acute Changes - IMPRESSION: #. Hepatomegaly and hepatosteatosis. Correlate with clinical assessment for potential steatohepatitis. #. Mild splenomegaly. #. Normal documented. No acute pathologic process of the alimentary tract evident. #. Negative for obstructive uropathy. Dr. Childress has reviewed this report. Radiology Interpretation Completed By: Radiologist Abd Pain Female Course/Dx - Course Course Of Treatment: CT abd and pelvis neg for gallstones, renal stranding or other abd or pelvic pathology, advised GI consult if pain continues. PO zofran ODT for nausea. - Differential Dx/Diagnosis Provider Diagnoses: upper abdominal pain Discharge - Sign-Out/Discharge Documenting (check all that apply): Patient Departure - Discharge Plan Condition: Stable Disposition: HOME Prescriptions: Ondansetron ODT TAB* [Zofran 4 MG Odt TAB*] 4 mg PO Q6H PRN 5 Days #20 tab.odt PRN Reason: Nausea Patient Education Materials: Indigestion (ED) Referrals: Jaspal Taylor MD [Primary Care Provider] - Kim Wilson DO [Doctor of Osteopathy] - Additional Instructions: Go to the emergency department if pain worsens. Set up an appointment with Dr. Wilson, basket assembler, if symptoms persist. - Billing Disposition and Condition Condition: STABLE Disposition: Home
[2018-01-30 16:21] VITALS: BP 152/101
[2018-01-30] MEDS ORDERED: Famotidine TAB* 20 MG PO ONE (16:21)
[2018-01-30] MEDS ORDERED: Lidocaine 2% VISCOUS* 15 ML UDC PO ONE (16:23)
[2018-01-30] MEDS ORDERED: Al Hydrox/Mg Hydrox/Simet LIQ* 30 ML UDC PO ONE (16:23)
--- NOTE | 2018-01-30 16:27 | RAD ---
INDICATION: Epigastric abdominal pain and cramping radiating to the back for 5 days. Nausea, vomiting, fever. History of chronic kidney disease. COMPARISON: May 27, 2016 renal ultrasound. September 17, 2014 RIGHT upper quadrant ultrasound. TECHNIQUE: Multidetector CT images were obtained from the lung bases to the ischial tuberosities. Evaluation of the viscera is limited without IV contrast. Multiplanar reformation. REPORT: Unremarkable visualized inferior thorax. 22 cm cephalocaudal liver with enlarged LEFT lateral hepatic segment extending to the far lateral and posterior aspect of the spleen demonstrates decreased density consistent with hepatosteatosis with focal sparing at the gallbladder fossa. No conspicuous focal hepatic lesions evident. No CT abnormality of the gallbladder. Negative for biliary dilatation. Unremarkable pancreas. Mildly enlarged 15 cm oblique cephalocaudal spleen. Negative for CT abnormality of the upper GI, small bowel, or retrocecal appendix. A few scattered colonic diverticula are noted without evidence for acute diverticulitis. Physiologic small volume of free fluid in the cul-de-sac. Negative for free air. Small fat-containing umbilical hernia without inflammatory change. Normal adrenal glands. Unremarkable kidneys, ureters, and partially distended urinary bladder. Negative for urolithiasis or focal renal lesions. IUD in place in the uterine cavity. Unremarkable adnexal regions. Negative for lymphadenopathy. Normal diameter abdominal aorta and iliac arteries. Physiologic distention of the IVC. Negative for suspicious osseous lesions. IMPRESSION: #. Hepatomegaly and hepatosteatosis. Correlate with clinical assessment for potential steatohepatitis. #. Mild splenomegaly. #. Normal documented. No acute pathologic process of the alimentary tract evident. #. Negative for obstructive uropathy.
== END 2018-01-30 17:05 | disposition home or self-care (01) ==
LOC: UCEAST 13:57
DX: R10.10 Upper abdominal pain, unspecified (principal); R16.2 Hepatomegaly with splenomegaly, not elsewhere classified; E11.9 Type 2 diabetes mellitus without complications; Z79.84 Long term (current) use of oral hypoglycemic drugs
CPT/HCPCS: 74176; 81003; 84702; 99213; A9270-GY; G0463

== ENCOUNTER 2018-09-19 11:59 | Emergency (ER) | payer OTHER ==
[2018-09-19 12:29] VITALS: BP 150/106
--- NOTE | 2018-09-19 12:35 | UC ---
Eye Complaint HPI - HPI Summary HPI Summary: 28 yo female presents with stye in left eye. She tells me that she has had these in past and this feels the same. This one however began 2 days ago and is further back on her eyelid and she cannot use the erythromycin ointment that far back. She popped it yesterday with a q-tip, but it filled back up today. Wears glasses, but never contacts. Denies recent illness, vision changes, fever , or chills. - History of Current Complaint Chief Complaint: UCEye Stated Complaint: EYE COMPLAINT Time Seen by Provider: 09/19/18 12:35 Hx Obtained From: Patient Hx Last Menstrual Period: 08/26/2018 Onset/Duration: Sudden Onset Severity Initially: Moderate Severity Currently: Severe Pain Intensity: 8 Pain Scale Used: 0-10 Numeric - Allergies/Home Medications Allergies/Adverse Reactions: Allergies Allergy/AdvReac Type Severity Reaction Status Date / Time No Known Allergies Allergy Verified 01/30/18 14:21 Home Medications: Home Medications Escitalopram Oxalate [Lexapro 10 mg] 10 mg PO DAILY 09/19/18 [History Confirmed 09/19/18] PMH/Surg Hx/FS Hx/Imm Hx - Additional Past Medical History Additional PMH: PCOS Psychological History: Anxiety, Depression - Surgical History Surgical History: None Surgery Procedure, Year, and Place: 2 c sections- 2016 - Family History Known Family History: Positive: None Negative: Renal Disease - Social History Lives: With Family Alcohol Use: Rare Substance Use Type: None Smoking Status (MU): Never Smoked Tobacco Have You Smoked in the Last Year: No - Immunization History Most Recent Influenza Vaccination: current Most Recent Tetanus Shot: 11/11/2015 Most Recent Pneumonia Vaccination: never Review of Systems All Other Systems Reviewed And Are Negative: Yes Constitutional: Positive: Negative Skin: Positive: Negative Eyes: Positive: Other - Left eye stye ENT: Positive: Negative Respiratory: Positive: Negative Cardiovascular: Positive: Negative Neurovascular: Positive: Negative Neurological: Positive: Negative Psychological: Positive: Negative Physical Exam - Summary Physical Exam Summary: GENERAL: NAD. WDWN. No pain distress. SKIN: No rashes, sores, lesions, or open wounds. HEENT: Head: AT/NC Eyes: EOM intact. Conjunctiva clear without inflammation or discharge. LEFT EYE: Upper eyelid with 4mm stye. TTP. No scleral injection. Ears: Hearing grossly normal. TMs intact, no bulging, erythema, or edema. Nose: Nasal mucosa pink and moist. NTTP maxillary and frontal sinus. NECK: Supple. Nontender. No lymphadenopathy. CHEST: No accessory muscle use. Breathing comfortably and in no distress. CV: Pulses intact. Cap refill <2seconds NEURO: Alert. PSYCH: Age appropriate behavior. Triage Information Reviewed: Yes Vital Signs: Initial Vital Signs Temp 97.1 F 09/19/18 12:23 Pulse 115 09/19/18 12:23 Resp 16 09/19/18 12:23 BP 150/106 09/19/18 12:23 Pulse Ox 100 09/19/18 12:23 Vital Signs Reviewed: Yes Eye Complaint Course/Dx - Course Course Of Treatment: Elana left eye - Differential Dx/Diagnosis Provider Diagnosis: Hordeolum of left eye Discharge - Sign-Out/Discharge Documenting (check all that apply): Patient Departure All imaging exams completed and their final reports reviewed: No Studies - Discharge Plan Condition: Stable Disposition: HOME Prescriptions: Polymyx/Trimethoprim OPTH* [Polytrim OPHTH*] 1 drop LEFT EYE QID #1 btl Patient Education Materials: Elana (ED) Referrals: Jaspal Taylor MD [Primary Care Provider] - Additional Instructions: If you develop a fever, shortness of breath, chest pain, new or worsening symptoms - please call your PCP or go to the ED. Your blood pressure was high at todays visit. Please see your primary provider within 4 weeks for recheck and re-evaluation. - Billing Disposition and Condition Condition: STABLE Disposition: Home
== END 2018-09-19 12:47 | disposition home or self-care (01) ==
LOC: UCEAST 11:59
DX: H00.014 Hordeolum externum left upper eyelid (principal); F41.8 Other specified anxiety disorders; Z79.899 Other long term (current) drug therapy
CPT/HCPCS: 99212; G0463

== ENCOUNTER 2019-07-13 11:04 | Emergency (ER) | payer OTHER ==
--- OUTSIDE RECORDS SUMMARY | 2019-07-13 13:09 | XMS REPORT | Continuity of Care Document ---
:1990 External Reference #:[id number] Author Name Domonique Vega MD Address [address] [place] [address] Care Team Providers Name Role Phone Wendi Coto MD Care Team Information Director Of Health Education [phone] Problems Active Problems Provider Date Primigravida Keya Hicks NP Onset: 07/02/2015 Social History Type Date Description Comments Sex Unknown Tobacco Use Start: Unknown Never Smoked Cigarettes ETOH Use Occasionally consumes alcohol Tobacco Use Start: Unknown Patient has never smoked Recreational Drug Use Denies Drug Use Smoking Status Reviewed: 05/29/19 Patient has never smoked Exercise Type/Frequency Does not exercise Seat Belt/Car Seat Always uses seat belt Allergies, Adverse Reactions, Alerts Description No Known Drug Allergies Medications Active Medications SIG Qnty Indications Ordering Provider Date Tranexamic Acid take two tabs by 30tabs N94.5 Domonique Vega, 05/29/2019 650mg mouth three MD Tablets times a day when menses starts, maximum of 5 days per month Valacyclovir HCL 1 tablet by 30tabs Evette Angulo 11/03/2018 1gm mouth daily ANGÉLICA Devi Tablets Paragard Intrauterine Domonique Vega, 11/25/2016 Copper Contraceptive T380a T380a IUD Metformin HCL Unknown Medications Administered in Office Medication SIG Qnty Indications Ordering Provider Date PT SCRN Tbco Id as Non User Domonique Vega MD 05/29/2019 Injection Immunizations CPT Code Status Date Vaccine Lot # [id number] Given 11/11/2015 Tetnus, Diptheria Toxoids And Acellular Pertussis, [id number] PT > 7Yrs Old Vital Signs Date Vital Result Comment 05/29/2019 10:57am BP Systolic 132 mmHg BP Diastolic 76 mmHg Height 65 inches 5'5" Weight 180.00 lb BMI (Body Mass Index) 30.0 kg/m2 Last Menstrual Period [id number] 4 Parity 2 06/08/2017 12:49pm BP Systolic 118 mmHg BP Diastolic 86 mmHg Height 65 inches 5'5" Weight 213.00 lb BMI (Body Mass Index) 35.4 kg/m2 Last Menstrual Period 1898654 4 Parity 2 Results Description No Information Available Procedures Description No Information Available Medical Devices Description No Information Available Encounters Type Date Location Provider Dx Diagnosis Office Visit 05/29/2019 [facility] Domonique Vega, Z01.411 Encntr for ob/gyn exam 11:00a (general) (routine) w abnormal findings E66.8 Other obesity N92.0 Excessive and frequent menstruation with regular cycle N94.5 Secondary dysmenorrhea Assessments Date Code Description Provider 05/29/2019 Z01.411 Encounter for gynecological examination Domonique Vega MD (general) (routine) with abnormal findings 05/29/2019 E66.8 Other obesity Domonique Vega MD 05/29/2019 N92.0 Excessive and frequent menstruation with Domonique Vega MD regular cycle 05/29/2019 N94.5 Secondary dysmenorrhea Domonique Vega MD Plan of Treatment Future Appointment(s):08/21/2019 9:00 am - Domonique Vega MD at [facility] - Domonique Vega MDZ01.411 Encounter for gynecological examination ( general) (routine) with abnormal findingsComments:Maintain routine exercise and healthy diet. Try to get adequate sleep at night to improve your overall health (most people need ~8 hours!)Perform periodic breast exams at various times of the month to become familiar with your breast tissue so you are more likely to notice something abnormal. Return for annual exam in 1 year or earlier if concerns arise. Routine cervical cancer screening has changed. Pap smears are no longer done every year for low-risk women. A combination screening with both a pap smear (looking for abnormal cells) and HPV testing are recommended every 3-5 years. It takes many years for normal cells to become abnormal and many more years for the abnormal cells to become cancer. Women should still come for a yearly visit and exam. When there is an abnormal pap smear or +HPV testing more frequent screening is recommended.E66.8 Other obesityComments:Continue with current planN92.0 Excessive and frequent menstruation with regular cycleComments:Likely related to paragard IUD. Discussed option for switching to Kyleena but insertion was very painful for her.N94.5 Secondary dysmenorrheaNew Medication:Tranexamic Acid 650 mg - take two tabs by mouth three times a day when menses starts, maximum of 5 days per monthComments:Will try Lysteda Functional Status Functional Condition Comment Date Status Glasses Active Mental Status Description No Information Available Referrals Description No Information Available
[2019-07-13 13:23] VITALS: BP 153/98
--- NOTE | 2019-07-13 14:25 | UC ---
Complaint Female HPI - HPI Summary HPI Summary: 29-year-old female presents with concern for a missed period. States last menstrual period was 06/07/2019. She is typically regular every 28 days. Patient has the ParaGard IUD and states that she is concerned that it may be out of place causing a change in her menses. She has not checked for stringed placement. Patient reports she has had some intermittent right flank pain for the past several weeks. Last episode was yesterday evening. States episodes are usually very brief lasting seconds to minutes. Denies fever, chills, abdominal pain, nausea, vomiting, vaginal discharge, or dyspareunia. - History Of Current Complaint Chief Complaint: UCGU Stated Complaint: MISSING PERIOD Time Seen by Provider: 07/13/19 13:42 Hx Obtained From: Patient Hx Last Menstrual Period: Jun 07, 2019 Pain Intensity: 0 - Allergies/Home Medications Allergies/Adverse Reactions: Allergies Allergy/AdvReac Type Severity Reaction Status Date / Time No Known Allergies Allergy Verified 07/13/19 13:23 Home Medications: Home Medications Copper (Iud) [Paragard IUD] 1 unit IU DAILY WITH MEAL 07/13/19 [History Confirmed 07/13/19] PMH/Surg Hx/FS Hx/Imm Hx - Additional Past Medical History Additional PMH: PCOS - Surgical History Surgical History: None Surgery Procedure, Year, and Place: 2 c sections- 2016 - Family History Known Family History: Positive: Non-Contributory - Social History Occupation: Unemployed Lives: With Family Alcohol Use: Rare Substance Use Type: None Smoking Status (MU): Never Smoked Tobacco Have You Smoked in the Last Year: No - Immunization History Most Recent Influenza Vaccination: current Most Recent Tetanus Shot: 11/11/2015 Most Recent Pneumonia Vaccination: never Review of Systems All Other Systems Reviewed And Are Negative: Yes Constitutional: Negative: Fever, Chills Skin: Negative: Rash Respiratory: Positive: Negative Cardiovascular: Positive: Negative Gastrointestinal: Positive: Abdominal Pain. Negative: Vomiting, Diarrhea, Nausea Genitourinary: Positive: Frequency. Negative: Dysuria, Hematuria, Urgency, Vaginal/Penile Discharge, Abnormal Bleeding Musculoskeletal: Positive: Negative Neurological: Positive: Negative Is Patient Immunocompromised?: No Physical Exam - Summary Physical Exam Summary: GENERAL APPEARANCE: Alert and cooperative obese female who appears to be in no acute distress. CARDIAC: Normal S1 and S2. No S3, S4 or murmurs. Rhythm is regular. There is no peripheral edema, cyanosis or pallor. Extremities are warm and well perfused. Capillary refill is less than 2 seconds. Peripheral pulses intact. LUNGS: Clear to auscultation without rales, rhonchi, wheezing or diminished breath sounds. ABDOMEN: Positive bowel sounds. Soft, nondistended, nontender. No guarding or rebound. No masses or hepatosplenomegally. No CVA tenderness. GENITOURINARY: Deferred by patient. MUSKULOSKELETAL: ROM intact to all extremities. No joint erythema or tenderness. Normal muscular development. Normal gait. SKIN: Skin normal color, texture and turgor with no lesions or eruptions. Triage Information Reviewed: Yes Vital Signs: Initial Vital Signs Temp 96.6 F 07/13/19 13:18 Pulse 38 07/13/19 13:18 Resp 16 07/13/19 13:18 BP 153/98 07/13/19 13:18 Pulse Ox 99 07/13/19 13:18 Vital Signs Reviewed: Yes Complaint Female Dx - Course Course Of Treatment: 29-year-old female presents with concern for a missed period. States last menstrual period was 06/07/2019. She is typically regular every 28 days. Patient has the ParaGard IUD and states that she is concerned that it may be out of place causing a change in her menses. She has not checked for stringed placement. Patient reports she has had some intermittent right flank pain for the past several weeks. Last episode was yesterday evening. States episodes are usually very brief lasting seconds to minutes. Denies fever, chills, abdominal pain, nausea, vomiting, vaginal discharge, or dyspareunia. Afebrile. Hypertensive otherwise vital signs stable. Patient had a soft, nondistended, nontender abdomen with no CVA tenderness, otherwise unremarkable exam. A pelvic exam was deferred by the patient as she had her twin tablets with her and did not have anyone to watch them at this time. Ibqdp-gc-aizk urinalysis showed 2+ glucose, 3+ protein, 1+ bilirubin. Urine was negative. Reviewed these results with the patient. I discussed with her that based on these results her symptoms were unlikely from a urinary tract infection or renal calculi although I could not completely rule out the latter especially since we did not have CT scan available at this time. We also discussed that with the negative she was unlikely experiencing ectopic however her concern for IUD displacement could also not be fully ruled out without performing an ultrasound which she declined at this time again because she did not have child center assistant. I recommended that she follow up with primary care provider or SALES TRAINING REPRESENTATIVE within the next 3 days for further evaluation and treatment. Anticipatory guidance and warning symptoms that would require immediate evaluation in the emergency room were reviewed with the patient. Verbalizes understanding and agrees to plan of care. - Differential Dx/Diagnosis Differential Diagnosis/HQI/PQRI: Appendicitis, Ovarian Cyst, , Sexually Transmitted Disease, Ureteral Stone, Urinary Tract Infection, Other - IUD displacement Provider Diagnosis: Right flank pain, Late menses Discharge ED - Sign-Out/Discharge Documenting (check all that apply): Patient Departure All imaging exams completed and their final reports reviewed: No Studies - Discharge Plan Condition: Stable Disposition: HOME Patient Education Materials: Flank Pain (ED) Referrals: Rohan Queen MD [Primary Care Provider] - Additional Instructions: Your urine test performed in the clinic today showed no evidence of a urinary tract infection. There was also no blood in the urine therefore your flank pain is unlikely to be from a kidney stone although I cannot fully exclude this at this time. The urine test was negative therefore it is unlikely you have an ectopic . I cannot exclude the possibility of a displacement of your IUD as we were unable to obtain an ultrasound at this time. Follow up with your primary care provider or SALES TRAINING REPRESENTATIVE within 3 days for further evaluation and treatment. Seek immediate medical attention in the emergency room if you develop a fever greater than 100.5 F, have a severe abdominal or pelvic pain, persistent vomiting, or any worsening of symptoms. - Billing Disposition and Condition Condition: STABLE Disposition: Home
== END 2019-07-13 14:45 | disposition home or self-care (01) ==
LOC: UCEAST 11:04
DX: N91.2 Amenorrhea, unspecified (principal); R10.9 Unspecified abdominal pain; R35.0 Frequency of micturition; I10 Essential (primary) hypertension
CPT/HCPCS: 81003; 84702; 99211; G0463

== ENCOUNTER 2019-10-31 20:32 | Emergency (ER) | payer OTHER ==
--- OUTSIDE RECORDS SUMMARY | 2019-10-31 20:44 | XMS REPORT | Continuity of Care Document ---
:1990 External Reference #:[id number] Author Name Domonique Vega MD (transmitted by agent of provider Josie Pozo) Address [address] [place] [address] Care Team Providers Name Role Phone Rohan Queen MD Care Team Information City Recorder [phone] Problems Active Problems Provider Date Primigravida Keya Hicks NP Onset: 07/02/2015 Secondary dysmenorrhea Domonique Vega MD Onset: 08/30/2019 Abscess of Bartholin's gland Domonique Vega MD Onset: 09/20/2019 Social History Type Date Description Comments Sex Unknown Tobacco Use Start: Unknown Never Smoked Cigarettes ETOH Use Occasionally consumes alcohol Tobacco Use Start: Unknown Patient has never smoked Recreational Drug Use Denies Drug Use Smoking Status Reviewed: 09/26/19 Patient has never smoked Exercise Type/Frequency Does not exercise Seat Belt/Car Seat Always uses seat belt Allergies, Adverse Reactions, Alerts Description No Known Drug Allergies Medications Active Medications SIG Qnty Indications Ordering Date Provider Terconazole use 1 applicatorful 1tube Silvia, 09/26/2019 0.8% in the vagina right MD Domonique Cream before bed each night x7 Norethindrone Take 1 tab po daily 84tabs Silvia, 09/26/2019 Acetate/Ethinyl as instructed. MD Domonique Estradiol/Ferrous Start on the first Fumarate day of your next period. 1-20mg-mcg(24) Tablets Lidocaine Apply to sore area 30gm Silvia, 09/19/2019 (Anorectal) after urination/BMs MD Domonique 5% Cream Oxycodone-Acetaminop take 1 tab by mouth 10tabs Silvia, 09/19/2019 hen q6hrs as needed pain MD Domonique 5-325mg Tablets Sulfamethoxazole/Tri take 1 tab by mouth 10tabs N75.1 Silvia, 2019 methoprim DS twice a day x5 days MD Domonique 800-160mg Tablets Valacyclovir HCL 1 tablet by mouth 30tabs Evettecatarino Angulo 11/03/2018 1gm daily Shandra, CNM Tablets Paragard Silvia, 11/25/2016 Intrauterine Copper MD Domonique Contraceptive T380a T380a IUD Metformin HCL Unknown Prozac Unknown History Medications Oxycodone-Acetaminophen Take 1 tab PO 10tabs Silvia, 09/19/2019 - 2.5-300mg q6hrs prn MD Domonique 09/19/2019 Tablets pain. Acetaminophen-Codeine #4 take 1 tab by 6tabs Silvia, 09/15/2019 - 300-60mg mouth every 6 MD Domonique 09/10/2019 Tablets hours as needed severe pain Norethindrone Acetate/Ethinyl 1 by mouth 63tabs N94.5 Silvia, 2019 - Estradiol every day MD Domonique 09/10/2019 1-20mg-mcg Tablets Tranexamic Acid take two tabs 30tabs N94.5 Silvia, 05/29/2019 - 650mg Tablets by mouth MD Domonique 08/12/2019 three times a day when menses starts, maximum of 5 days per month Medications Administered in Office Medication SIG Qnty Indications Ordering Provider Date PT SCRN Tbco Id as Non User Domonique Vega MD 09/26/2019 Injection PT SCRN Tbco Id as Non User Domonique Vega MD 09/19/2019 Injection PT SCRN Tbco Id as Non User Domonique Vega MD 09/14/2019 Injection PT SCRN Tbco Id as Non User Domonique Vega MD 08/21/2019 Injection PT SCRN Tbco Id as Non User Domonique Vega MD 05/29/2019 Injection Immunizations CPT Code Status Date Vaccine Lot # [id number] Given 11/11/2015 Tetnus, Diptheria Toxoids And Acellular Pertussis, [id number] PT > 7Yrs Old Vital Signs Date Vital Result Comment 09/26/2019 10:57am BP Systolic 142 mmHg BP Diastolic 92 mmHg Height 65 inches 5'5" Weight 178.00 lb BMI (Body Mass Index) 29.6 kg/m2 Last Menstrual Period [id number] 4 Parity 2 09/19/2019 9:56am BP Systolic 122 mmHg BP Diastolic 74 mmHg Height 65 inches 5'5" Weight 174.00 lb BMI (Body Mass Index) 29.0 kg/m2 Last Menstrual Period 2794465 4 Parity 2 Results Test Acquired Date Facility Test Result H/L Range Note Wound 09/19/2019 [facility] Wound/Misc SEE RESULT 1 Culture/[place] [address] Culture-Gram BELOW [phone] Stain Laboratory test 09/19/2019 [facility] Gardnerella/Ye SEE RESULT 2 [place] [address] ast: Vaginal BELOW [phone] Dna Laboratory test 05/29/2019 [facility] Cytology SEE RESULT 3 [place] [address] BELOW [phone] 1 SEE RESULT BELOW Name: SARANYA LEWIS : [address]: Domonique Vega MD Acct: [id number] Unit: [id number] AGE: 29 Location: [facility] Re09/19/19 SEX: F Status: REG REF SPEC: [id number] RYAN: 09/19/19-1347 RACHEL ROGEL: Domonique Vega MD REQ: [id number] RECD: 09/19/19 STATUS: COMP _ SOURCE: [facility]: ORDERED: Culture Stain COMMENTS: [id number] Specimen Description labial cyst Procedure Result Reported Site Wound/Misc Gram Stain Final 09/20/19- 0817 ML 2+ Neutrophils 4+ Epithelial Cells 4+ Gram Positive Bacilli 1+ Gram Positive Cocci Wound/Misc Culture Final 09/21/19- 1125 ML Organism 1 YEAST Quantity 2+ Organism 2 NORMAL AARON Quantity 3+ * ML - Main Lab . END OF REPORT DEPARTMENT OF PATHOLOGY, [address] [place] [address] Sammy Hart M.D. Director ZAHRA # [id number] 2 SEE RESULT BELOW Name: SARANYA LEWIS : [address]: Domonique Vega MD Acct: [id number] Unit: [id number] AGE: 29 Location: [facility] Re09/19/19 SEX: F Status: REG REF SPEC: [id number] RYAN: 09/19/19-1334 [facility] DR: Domonique Vega MD REQ: [id number] RECD: 09/19/19 STATUS: COMP _ SOURCE: VAGINAL SPDESC: ORDERED: Arvind,Yeast DNA, Trich DNA COMMENTS: [id number] Would you like to order Trichomonas Vaginalis testing? Yes Procedure Result Reported Site Gardnerella/Yeast: Vaginal DNA Final 09/20/19- 1225 ML Organism 1 Negative Carmen Organism 2 [...] a test for therapeutic success or failure. Trichomonas: Vaginal DNA Probe Final 09/20/19- 1224 ML Organism 1 Negative Trichomonas CONTINUED ON NEXT PAGE DEPARTMENT OF PATHOLOGY, [address] [place] [address] Sammy Hart M.D. Director [facility] # [id number] Patient: SARANYA LEWIS [id number] (Continued) Specimen: [id number] Collected: 09/19/19434 Received: 09/19/19108 (Continued) Procedure Result Reported Site Trichomonas: Vaginal DNA Probe Final (continued) 09/20/19- 1225 The presence or absence of T. vaginalis cannot be used as a test for therapeutic success or failure. * - [facility] . END OF REPORT DEPARTMENT OF PATHOLOGY, [address] [place] [address] Sammy Hart M.D. Director [facility] # [id number] 3 SEE RESULT BELOW Name: SARANYA LEWIS : [address]: Domonique Vega MD Acct: [id number] Unit: [id number] AGE: 29 Location: [facility] Re05/29/19 SEX: F Status: REG REF SPEC: [id number] YRAN: 05/29/19-1302 [facility] DR: Domonique Vega MD REQ: [id number] RECD: 05/29/19 STATUS: MARK FARIAS DR: Faviola Coto MD _ ORDERED: TP IMAGE ANALYS COMMENTS: [id number] FINAL DIAGNOSIS Negative for Intraepithelial lesion or Malignancy SPECIMEN(S) RECEIVED A. Ectocervical/Endocervical CYTOLOGY ADEQUACY Specimen Adequacy: Satisfactory of evaluation Transformation zone component not identified CYTOLOGY PATIENT INFORMATION Patient Information: HPV: Thin Layer Pap Test w/reflex to high risk HPV RNA testing when ASCUS Actual Specimen Date: 05/29/19 Last Menstrual Date: 05/04/19 Date of Last Specimen: 07/24/15 Signed by and Reported on: MENDY Banegas (ASCP) [id number] This Pap test was evaluated with the assistance of the Voxel Test Imaging System. Due to cytologic findings at the dye mixer microscope, comprehensive manual rescreening by a Detasseler may be required. The Pap Smear is [...] evaluated every 1-3 years. END OF REPORT DEPARTMENT OF PATHOLOGY, [address] [place] [address] Sammy Hart M.D. Director [facility] # [id number] Procedures Date Code Description Status 09/15/2019 11139 I & D Abscess Bartholin's Gland Completed 09/14/2019 83177 I & D Abscess Bartholin's Gland Completed Medical Devices Description No Information Available Encounters Type Date Location Provider Dx Diagnosis Office Visit 09/26/2019 [facility] Domonique Vega, B37.3 Candidiasis of vulva 10:30a MD and vagina Z97.5 Presence of (intrauterine) contraceptive device Office Visit 09/19/2019 10:00a [facility] Domonique Vega, N75.1 Abscess of Bartholin's gland Office Visit 09/14/2019 2:30p [facility] Domonique Vega, N75.1 Abscess of MD Bartholin's gland Office Visit 08/21/2019 9:00a [facility] Domonique Vega, N94.5 Secondary MD dysmenorrhea Z97.5 Presence of (intrauterine) contraceptive device Z11.3 Encntr screen for infections w sexl mode of transmiss Office Visit 05/29/2019 11:00a [facility] Domonique Vega, Z01.411 Encntr for sewage disposal engineer MD exam (general) (routine) w abnormal findings E66.8 Other obesity N92.0 Excessive and frequent menstruation with regular cycle N94.5 Secondary dysmenorrhea Assessments Date Code Description Provider 09/26/2019 B37.3 Candidiasis of vulva and vagina Domonique Vega MD 09/26/2019 Z97.5 Presence of (intrauterine) contraceptive Domonique Vega MD device 09/19/2019 N75.1 Abscess of Bartholin's gland Domonique Vega MD 09/15/2019 N75.1 Abscess of Bartholin's gland Domonique Vega MD 09/14/2019 N75.1 Abscess of Bartholin's gland Domonique Vega MD 08/21/2019 N94.5 Secondary dysmenorrhea Domonique Vega MD 08/21/2019 Z97.5 Presence of (intrauterine) contraceptive Domonique Vega MD device 08/21/2019 Z11.3 Encounter for screening for infections with a Domonique Vega MD predominantly sexual mode of transmission 05/29/2019 Z01.411 Encounter for gynecological examination Domonique Vega MD (general) (routine) with abnormal findings 05/29/2019 E66.8 Other obesity Domonique Vega MD 05/29/2019 N92.0 Excessive and frequent menstruation with Domonique Vega MD regular cycle 05/29/2019 N94.5 Secondary dysmenorrhea Domonique eVga MD Plan of Treatment 09/26/2019 - Domnoique Vega MDB37.3 Candidiasis of vulva and vaginaComments: Use medication as prescribed.Call if continued or worsening symptoms in 1 week.Z97.5 Presence of (intrauterine) contraceptive deviceComments:Removed. Will start OCPs with first day of next period. Will abstain from intercourse until after next period. Functional Status Functional Condition Comment Date Status Glasses Active Mental Status Description No Information Available Referrals Description No Information Available
--- OUTSIDE RECORDS SUMMARY | 2019-10-31 20:44 | XMS REPORT | Continuity of Care Document ---
:1990 External Reference #:[id number] Author Name Domonique Vega MD (transmitted by agent of provider Melissa Gomez) Address [address] [place] [address] Care Team Providers Name Role Phone Rohan Queen MD Care Team Information Nurse Informatics Educator [phone] Problems Active Problems Provider Date Primigravida Keya [...] Use Denies Drug Use Smoking Status Reviewed: 09/19/19 Patient has never smoked Exercise Type/Frequency Does not exercise Seat Belt/Car Seat Always uses seat belt Allergies, Adverse Reactions, Alerts Description No Known Drug Allergies Medications Active Medications SIG Qnty Indications Ordering Provider Date Lidocaine (Anorectal) Apply to sore 30gm Domonique Vega, 09/19/2019 5% area after MD Cream urination/BMs Oxycodone-Acetaminophen take 1 tab by 10tabs Domonique Vega, 09/19/2019 mouth q6hrs as MD 5-325mg Tablets needed pain Sulfamethoxazole/Trimet take 1 tab by 10tabs N75.1 Domonique Vega, 2019 hoprim DS mouth twice a MD 800-160mg Tablets day x5 days Valacyclovir HCL 1 tablet by 30tabs Evette Angulo 11/03/2018 1gm mouth daily Shandra, CNM Tablets Paragard Intrauterine Domonique Vega, 11/25/2016 Copper [...] Norethindrone Acetate/Ethinyl 1 by mouth 63tabs N94.5 Silvia 2019 - Estradiol every day MD Domonique [...] CPT Code Status Date Vaccine Lot # [id number] Given 11/11/2015 Tetnus, Diptheria Toxoids And Acellular Pertussis, [id number] PT > 7Yrs Old Vital Signs Date Vital Result Comment 09/19/2019 9:56am BP Systolic 122 mmHg BP Diastolic 74 mmHg Height 65 inches 5'5" Weight 174.00 lb BMI (Body Mass Index) 29.0 kg/m2 Last Menstrual Period 5134231 4 Parity 2 09/15/2019 11:20am BP Systolic 122 mmHg BP Diastolic 72 mmHg Height 65 inches 5'5" Weight 174.00 lb BMI (Body Mass Index) 29.0 kg/m2 Last Menstrual Period 1724944 4 Parity 2 Results Test Acquired Date Facility Test Result H/L Range Note Wound 09/19/2019 [facility] Wound/Misc SEE RESULT 1 Culture/[place] [address] Culture-Gram BELOW [phone] Stain Laboratory test 09/19/2019 [facility] Gardnerella/Ye SEE RESULT 2 [place] [address] ast: Vaginal BELOW [phone] Dna Laboratory test 05/29/2019 [facility] Cytology SEE RESULT 3 [place] [address] BELOW [phone] 1 SEE RESULT BELOW Name: SARANYA LEWIS : [address]: Domonique Vega MD Acct: [id number] Unit: [id number] AGE: 29 Location: [facility] Re09/19/19 SEX: F Status: REG REF SPEC: [id number] RYAN: 09/19/19-[address] [facility] DR: Domonique Vega MD REQ: [id number] RECD: 09/19/199300 STATUS: COMP _ SOURCE: [facility]: ORDERED: Culture Stain COMMENTS: [id number] Specimen Description labial cyst Procedure Result Reported Site Wound/Misc Gram Stain Final 09/20/19- 0817 ML 2+ Neutrophils 4+ Epithelial Cells 4+ Gram Positive Bacilli 1+ Gram Positive Cocci Wound/Misc Culture Final 09/21/19- 1125 ML Organism 1 YEAST Quantity 2+ Organism 2 NORMAL AARON Quantity 3+ * ML - Main Lab . END OF REPORT DEPARTMENT OF PATHOLOGY, [address] [place] [address] Sammy Hart M.D. Director [facility] # [id number] 2 SEE RESULT BELOW Name: SARANYA LEWIS : [address]: Domonique Vega MD Acct: [id number] Unit: [id number] AGE: 29 Location: [facility] Re09/19/19 SEX: F Status: REG REF SPEC: [id number] RYAN: 09/19/[address] [facility] DR: Domonique Vega MD REQ: [id number] RECD: 09/19/19 STATUS: COMP _ SOURCE: VAGINAL SPDESC: ORDERED: Arvind,Yeast DNA, Trich DNA COMMENTS: [id number] Would you like to order Trichomonas Vaginalis [...] failure. Trichomonas: Vaginal DNA Probe Final 09/20/19- 1225 ML Organism 1 Negative Trichomonas CONTINUED ON NEXT PAGE DEPARTMENT OF PATHOLOGY, [address] [place] [address] Sammy Hart M.D. Director [facility] # [id number] Patient: SARANYA LEWIS [id number] (Continued) Specimen: [id number] Collected: 09/19/19 Received: 09/19/19-6893 (Continued) Procedure Result Reported Site Trichomonas: Vaginal DNA Probe Final (continued) 09/20/19- 1225 The presence or absence of T. vaginalis cannot be used as a test for therapeutic success or failure. * - Main Lab . END OF REPORT DEPARTMENT OF PATHOLOGY, [address] [place] [address] Sammy Hart M.D. Director [facility] # [id number] 3 SEE RESULT BELOW Name: SARANYA LEWIS : [address]: Domonique Vega MD Acct: [id number] Unit: [id number] AGE: 29 Location: [facility] Re05/29/19 SEX: F Status: REG REF SPEC: [id number] RYAN: 05/29/19-[address] [facility] DR: Domonique Vega MD REQ: [id number] RECD: 05/29/19 STATUS: MARK FARIAS DR: Faviola Coto MD _ ORDERED: TP IMAGE ANALYS COMMENTS: [id number] FINAL DIAGNOSIS Negative for Intraepithelial lesion or Malignancy SPECIMEN(S) RECEIVED A. Ectocervical/Endocervical CYTOLOGY ADEQUACY Specimen Adequacy: Satisfactory of evaluation Transformation zone component not identified CYTOLOGY PATIENT INFORMATION Patient Information: HPV: Thin Layer Pap Test w/reflex to high risk HPV RNA testing when ASCUS Actual Specimen Date: 05/29/19 Last Menstrual Date: 05/04/19 Date of Last Specimen: 07/24/15 Signed by and Reported on: Stefano MaganaMENDY (ASCP) 1459 This Pap test was evaluated with the assistance of the [employer] Test Imaging System. Due to cytologic findings at the sheet manufacturing supervisor microscope, comprehensive manual rescreening by a Hand Twister may be required. The Pap Smear is [...] years. END OF REPORT DEPARTMENT OF PATHOLOGY, [address] [place] [address] Sammy Hart M.D. Director [facility] # [id number] Procedures Date Code Description Status 09/15/2019 81951 I & D Abscess Bartholin's Gland Completed 09/14/2019 25099 I & D Abscess Bartholin's Gland Completed Medical Devices Description No Information Available Encounters Type Date Location Provider Dx Diagnosis Office Visit 09/19/2019 [facility] Domonique Vega, N75.1 Abscess of Bartholin's 10:00a gland Office Visit 09/14/2019 [facility] Domonique Vega, N75.1 Abscess of Bartholin's 2:30p gland Office Visit 08/21/2019 [facility] Domonique Vega, N94.5 Secondary dysmenorrhea 9:00a Z97.5 Presence of (intrauterine) contraceptive device Z11.3 Encntr screen for infections w sexl mode of transmiss Office Visit 05/29/2019 11:00a [facility] Domonique Vega, Z01.411 Encntr for hosting engineer MD exam (general) (routine) w abnormal findings E66.8 Other obesity N92.0 Excessive and frequent menstruation with regular cycle N94.5 Secondary dysmenorrhea Assessments Date Code Description Provider 09/19/2019 N75.1 Abscess of Bartholin's gland Domonique [...] Domonique Vega MD Plan of Treatment Future Appointment(s):09/26/2019 10:30 am - Domonique Vega MD at [facility] 8:30 am - [facility]09/[facility]/2019 - Domonique Vega MDN75.1 Abscess of Bartholin's glandComments:Cont abx. Will send a few oxycodone. Can apply lidocaine gel to areaFollow up as scheduled on wednesday Functional Status Functional Condition Comment Date Status Glasses Active Mental Status Description No Information Available Referrals Description No Information Available
--- OUTSIDE RECORDS SUMMARY | 2019-10-31 20:44 | XMS REPORT | Continuity of Care Document ---
:1990 External Reference #:[id number] Author Name Domonique Vega MD Address [address] [place] [address] Care Team Providers Name Role Phone Rohan Queen MD Care Team Information Ultrasonic Tester [phone] Problems Active Problems Provider Date Primigravida Keya Hicks NP Onset: 07/02/2015 Secondary dysmenorrhea Domonique Vega MD Onset: 08/30/2019 Social History Type Date Description Comments Sex [...] 5% area after MD Cream urination/BMs Oxycodone-Acetaminophen Take 1 tab PO 10tabs Domonique Vega, 09/19/2019 q6hrs prn pain. 2.5-300mg Tablets Sulfamethoxazole/Trimet take 1 tab by 10tabs N75.1 Domonique Vega, 2019 hoprim DS mouth twice a 800-160mg Tablets day x5 days Valacyclovir HCL 1 tablet by 30tabs Evette Angulo 11/03/2018 1gm mouth daily Shandra CNXavier Tablets Paragard Intrauterine Domonique Vega, 11/25/2016 Copper Contraceptive T380a T380a IUD Metformin HCL Unknown Prozac Unknown History Medications Acetaminophen-Codeine #4 take 1 tab by 6tabs Domonique Vega, 09/15/2019 - 300-60mg mouth every 6 09/10/2019 Tablets hours as needed severe pain Norethindrone 1 by mouth 63tabs N94.5 Domonique Vega, 08/21/2019 - Acetate/Ethinyl Estradiol every day 09/10/2019 1-20mg-mcg Tablets Tranexamic Acid take two tabs 30tabs N94.5 Domonique Vega, 05/29/2019 - 650mg Tablets by mouth 08/12/2019 three times a day when menses [...] CPT Code Status Date Vaccine Lot # [id number] Given 11/11/2015 Tetnus, Diptheria Toxoids And Acellular Pertussis, [id number] PT > 7Yrs Old Vital Signs Date Vital Result Comment 09/19/2019 9:56am BP Systolic 122 mmHg BP Diastolic 74 mmHg Height 65 inches 5'5" Weight 174.00 lb BMI (Body Mass Index) 29.0 kg/m2 Last Menstrual Period 8753908 4 Parity 2 09/15/2019 11:20am BP Systolic 122 mmHg BP Diastolic 72 mmHg Height 65 inches 5'5" Weight 174.00 lb BMI (Body Mass Index) 29.0 kg/m2 Last Menstrual Period 0025004 4 Parity 2 Results Test Acquired Date Facility Test Result H/L Range Note Laboratory test 05/29/2019 [facility] Cytology SEE RESULT 1 [place] [address] BELOW [phone] 1 SEE RESULT BELOW Name: SARANYA LEWIS : [address]: Domonique Vega MD Acct: [id number] Unit: [id number] AGE: 29 Location: [facility] Re05/29/19 SEX: F Status: REG REF SPEC: [id number] RYAN: 05/29/19 [facility] [address]: Domonique Vega MD REQ: [id number] RECD: 05/29/19 STATUS: MARK FARIAS DR: Faviola Coto MD _ ORDERED: TP IMAGE ANALYS COMMENTS: [id number] FINAL DIAGNOSIS Negative for Intraepithelial lesion or [...] by and Reported on: MENDY Banegas (ASCP) 1452 This Pap test was evaluated with the assistance of the [employer] Test Imaging System. Due to cytologic findings at the president practicing urologist microscope, comprehensive manual rescreening by a Network Support Technician may be required. The Pap Smear is [...] years. END OF REPORT DEPARTMENT OF PATHOLOGY, [address] [place] [address] Sammy Hart M.D. Director [facility] # [id number] Procedures Date Code Description Status 09/15/2019 68415 I & D Abscess Bartholin's Gland Completed 09/14/2019 44047 I & D Abscess Bartholin's Gland Completed Medical Devices Description No Information Available Encounters Type Date Location Provider Dx Diagnosis Office Visit 09/[facility]/2019 [facility] Domonique Vega, N75.1 Abscess of Bartholin's 10:00a gland Office Visit 09/14/2019 [facility] Domonique Vega, N75.1 Abscess of Bartholin's 2:30p gland Office Visit 08/21/2019 [facility] Domonique Vega, N94.5 Secondary dysmenorrhea 9:00a Z97.5 Presence of (intrauterine) contraceptive device Z11.3 Encntr screen for infections w sexl mode of transmiss Office Visit 05/29/2019 11:00a [facility] Domonique Vega, Z01.411 Encntr for chef saucier MD exam (general) (routine) w abnormal findings [...] Domonique Vega MD Plan of Treatment Future Appointment(s):09/22/2019 10:45 am - Domonique Vega MD at [facility] 8:30 am - Domonique Vega MD at [facility]09/19/2019 - Domonique Vega MDN75.1 Abscess of Bartholin's glandComments:Cont abx. Will send a few oxycodone. Can apply lidocaine gel to areaFollow up as scheduled on wednesday Functional Status Functional Condition Comment Date Status Glasses Active Mental Status Description No Information Available Referrals Description No Information Available
--- OUTSIDE RECORDS SUMMARY | 2019-10-31 20:44 | XMS REPORT | Continuity of Care Document ---
:1990 External Reference #:[id number] Author Name Domonique Vega MD (transmitted by agent of provider Nelia Adams ) Address [address] [place] [address] Care Team Providers Name Role Phone Rohan Queen MD Care Team Information Refinery Operator Reforming Unit [phone] Problems Active Problems Provider Date Primigravida Keya Hicks NP Onset: 07/02/2015 Secondary dysmenorrhea Domonique Vega MD Onset: 08/30/2019 Social History Type Date Description Comments Sex Unknown Tobacco Use Start: Unknown Never Smoked Cigarettes ETOH Use Occasionally consumes alcohol Tobacco Use Start: Unknown Patient has never smoked Recreational Drug Use Denies Drug Use Smoking Status Reviewed: 08/21/19 Patient has never smoked Exercise Type/Frequency Does not exercise Seat Belt/Car Seat Always uses seat belt Allergies, Adverse Reactions, Alerts Description No Known Drug Allergies Medications Active Medications SIG Qnty Indications Ordering Provider Date Sulfamethoxazole/Trimet take 1 tab by 10tabs N75.1 Domonique Vega, 2019 hoprim DS mouth twice a 800-160mg Tablets day x5 days Norethindrone 1 by mouth 63tabs N94.5 Domonique Vega, 08/21/2019 Acetate/Ethinyl every day Estradiol 1-20mg-mcg Tablets Valacyclovir HCL 1 tablet by 30tabs Evette Angulo 11/03/2018 1gm mouth daily ANGÉLICA Devi Tablets Paragard Intrauterine Domonique Vega, 11/25/2016 Copper Contraceptive T380a T380a IUD Metformin HCL Unknown Prozac Unknown History Medications Tranexamic Acid take two tabs by 30tabs N94.5 Domonique Vega MD 2018 - mouth three 08/12/2019 650mg Tablets times a day when menses starts, [...] CPT Code Status Date Vaccine Lot # [id number] Given 11/11/2015 Tetnus, Diptheria Toxoids And Acellular Pertussis, [id number] PT > 7Yrs Old Vital Signs Date Vital Result Comment 09/15/2019 11:20am Height 65 inches 5'5" Last Menstrual Period 7149527 4 Parity 2 09/14/2019 2:46pm BP Systolic 122 mmHg BP Diastolic 72 mmHg Height 65 inches 5'5" Weight 174.00 lb BMI (Body Mass Index) 29.0 kg/m2 Last Menstrual Period 1606434 4 Parity 2 Results Test Acquired Date Facility Test Result H/L Range Note Laboratory test 05/29/2019 [facility] Cytology SEE RESULT 1 [place] [address] BELOW [phone] 1 SEE RESULT BELOW Name: SARANYA LEWIS : [address]: Domonique Vega MD Acct: [id number] Unit: [id number] AGE: 29 Location: [facility] Re05/29/19 SEX: F Status: REG REF SPEC: [id number] RYAN: 05/29/19-[address] [facility] [address]: Domonique Vega MD REQ: [id number] RECD: 05/29/19 STATUS: MARK FARIAS DR: Faviola Coto MD _ ORDERED: TP IMAGE ANALYS COMMENTS: [id number] FINAL DIAGNOSIS Negative for Intraepithelial lesion or [...] by and Reported on: MENDY Banegas (ASCP) 3451 This Pap test was evaluated with the assistance of the [employer] Test Imaging System. Due to cytologic findings at the computer trainer microscope, comprehensive manual rescreening by a Sealing Machine Operator may be required. The Pap Smear is [...] years. END OF REPORT DEPARTMENT OF PATHOLOGY, [address] [place] [address] Sammy Hart M.D. Director [facility] # [id number] Procedures Date Code Description Status 09/14/2019 27777 I & D Abscess Bartholin's Gland Completed Medical Devices Description No Information Available Encounters Type Date Location Provider Dx Diagnosis Office Visit 09/14/2019 [facility] Domonique Vega, N75.1 Abscess of Bartholin's 2:30p gland Office Visit 08/21/2019 [facility] oDmonique Vega, N94.5 Secondary dysmenorrhea 9:00a MD Z97.5 Presence of (intrauterine) contraceptive device Z11.3 Encntr screen for infections w sexl mode of transmiss Office Visit 05/29/2019 11:00a [facility] Office Domonique Vega, Z01.411 Encntr for board worker MD exam (general) (routine) w abnormal findings E66.8 Other obesity N92.0 Excessive and frequent menstruation with regular cycle N94.5 Secondary dysmenorrhea Assessments Date Code Description Provider 09/14/2019 N75.1 Abscess of Bartholin's gland Domonique [...] Domonique Vega MD Plan of Treatment Future Appointment(s):10/03/2019 8:30 am - Domonique Vega MD at [facility] Functional Status Functional Condition Comment Date Status Glasses Active Mental Status Description No Information Available Referrals Description No Information Available
--- OUTSIDE RECORDS SUMMARY | 2019-10-31 20:44 | XMS REPORT | Continuity of Care Document ---
:1990 External Reference #:[id number] Author Name Domonique Vega MD Address [address] [place] [address] Care Team Providers Name Role Phone Rohan Queen MD Care Team Information Infection Control Coordinator [phone] Problems Active Problems Provider Date Primigravida Keya [...] Valacyclovir HCL 1 tablet by mouth 30tabs Evette Adele 11/03/2018 1gm daily Shandra CNM Tablets Paragard Silvia, 11/25/2016 Intrauterine Copper [...] Tranexamic Acid take two tabs 30tabs N94.5 Silvia 05/29/2019 - 650mg Tablets by mouth MD [...] CPT Code Status Date Vaccine Lot # [id number] Given 11/11/2015 Tetnus, Diptheria Toxoids And Acellular Pertussis, [id number] PT > 7Yrs Old Vital Signs Date Vital Result Comment 09/26/2019 10:57am BP Systolic 142 mmHg BP Diastolic 92 mmHg Height 65 inches 5'5" Weight 178.00 lb BMI (Body Mass Index) 29.6 kg/m2 Last Menstrual Period 1500595 4 Parity 2 09/19/2019 9:56am BP Systolic 122 mmHg BP Diastolic 74 mmHg Height 65 inches 5'5" Weight 174.00 lb BMI (Body Mass Index) 29.0 kg/m2 Last Menstrual Period 3873687 4 Parity 2 Results Test Acquired Date Facility Test Result H/L Range Note Wound 09/19/2019 [facility] Wound/Misc SEE RESULT 1 Culture/[place] [address] Culture-Gram BELOW [phone] Stain Laboratory test 09/19/2019 [facility] Gardnerella/Ye SEE RESULT 2 [place] [address] ast: Vaginal BELOW [phone] Dna Laboratory test 05/29/2019 [facility] Cytology SEE RESULT 3 [place] [address] BELOW [phone] 1 SEE RESULT BELOW Name: SARANYA LEWIS : [address]: Domonique Vega MD Acct: [id number] Unit: [id number] AGE: 29 Location: [facility] Re09/19/19 SEX: F Status: REG REF SPEC: [id number] RYAN: 09/19/19-13[address] [facility] DR: Domonique Vega MD REQ: [id number] RECD: 09/19/19 STATUS: COMP _ SOURCE: [facility]: ORDERED: Culture Stain COMMENTS: [id number] Specimen Description labial cyst Procedure Result Reported Site Wound/Misc Gram Stain Final 09/20/19- 0817 ML 2+ Neutrophils 4+ Epithelial Cells 4+ Gram Positive Bacilli 1+ Gram Positive Cocci Wound/Misc Culture Final 09/21/19- 1125 ML Organism 1 YEAST Quantity 2+ Organism 2 NORMAL AARON Quantity 3+ * ML - Main Lab . END OF REPORT DEPARTMENT OF PATHOLOGY, [address] [place] [address] Sammy Hart M.D. Director [facility] # [id number] 2 SEE RESULT BELOW Name: SARANYA LEWIS : [address]: Domonique Vega MD Acct: [id number] Unit: [id number] AGE: 29 Location: [facility] Re09/19/19 SEX: F Status: REG REF SPEC: [id number] RYAN: 09/19/19-13[address] [facility] DR: Domonique Vega MD REQ: [id number] RECD: 09/19/19 STATUS: COMP _ SOURCE: VAGINAL SPDESC: ORDERED: Arvind,Yeast DNA, Trich DNA COMMENTS: [id number] Would you like to order Trichomonas Vaginalis [...] CONTINUED ON NEXT PAGE DEPARTMENT OF PATHOLOGY, [address] [place] [address] Sammy Hart M.D. Director [facility] # [id number] Patient: SARANYA LEWIS Nicolas [id number] (Continued) Specimen: [id number] Collected: 09/19/19 Received: 09/19/190213 (Continued) Procedure Result Reported Site Trichomonas: Vaginal DNA Probe Final (continued) 09/20/19- 1225 The presence or absence of T. vaginalis cannot be used as a test for therapeutic success or failure. * - Main Lab . END OF REPORT DEPARTMENT OF PATHOLOGY, [address] [place] [address] Sammy Hart M.D. Director [facility] # [id number] 3 SEE RESULT BELOW Name: SARANYA LEWIS : [address]: Domonique Vega MD Acct: [id number] Unit: [id number] AGE: 29 Location: [facility] Re05/29/19 SEX: F Status: REG REF JUAN: [id number] RYAN: 05/29/19-[address] [facility] [address]: Domonique Vega MD REQ: [id number] RECD: 05/29/19 STATUS: MARK FARIAS DR: Faviola Coto MD _ ORDERED: TP IMAGE ANALYS COMMENTS: [id number] FINAL DIAGNOSIS Negative for Intraepithelial lesion or [...] by and Reported on: MENDY Banegas (ASCP) 1450 This Pap test was evaluated with the assistance of the [employer] Test Imaging System. Due to cytologic findings at the painter mirror microscope, comprehensive manual rescreening by a Editor Index may be required. The Pap Smear is [...] years. END OF REPORT DEPARTMENT OF PATHOLOGY, [address] [place] [address] Sammy Hart M.D. Director [facility] # [id number] Procedures Date Code Description Status 09/15/2019 18539 I & D Abscess Bartholin's Gland Completed 09/14/2019 14141 I & D Abscess Bartholin's Gland Completed Medical Devices Description No Information Available Encounters Type Date Location Provider Dx Diagnosis Office Visit 09/26/2019 [facility] Domonique Vega, B37.3 Candidiasis of vulva 10:30a MD and vagina Z97.5 Presence of (intrauterine) contraceptive device Office Visit 09/19/2019 10:00a [facility] Domonique Vega, N75.1 Abscess of MD Bartholin's gland Office Visit 09/14/2019 2:30p [facility] Domonique Vega, N75.1 Abscess of MD Bartholin's gland Office Visit 08/21/2019 9:00a [facility] Domonique Vega, N94.5 Secondary MD dysmenorrhea Z97.5 Presence of (intrauterine) contraceptive device Z11.3 Encntr screen for infections w sexl mode of transmiss Office Visit 05/29/2019 11:00a [facility] Domonique Vega, Z01.411 Encntr for chief wellness officer MD exam (general) (routine) w abnormal findings [...] dysmenorrhea Domonique Vega MD Plan of Treatment 09/26/2019 - Domonique Vega MDB37.3 Candidiasis of vulva and vaginaComments: [...]
--- OUTSIDE RECORDS SUMMARY | 2019-10-31 20:44 | XMS REPORT | Continuity of Care Document ---
:1990 External Reference #:[id number] Author Name Domonique Vega MD Address [address] [place] [address] Care Team Providers Name Role Phone Rohan Queen MD Care Team Information Railcar Mechanic [phone] Problems Active Problems Provider Date Primigravida Keya [...] CPT Code Status Date Vaccine Lot # [id number] Given 11/11/2015 Tetnus, Diptheria Toxoids And Acellular Pertussis, [id number] PT > 7Yrs Old Vital Signs Date Vital Result Comment 09/14/2019 2:46pm BP Systolic 122 mmHg BP Diastolic 72 mmHg Height 65 inches 5'5" Weight 174.00 lb BMI (Body Mass Index) 29.0 kg/m2 Last Menstrual Period 9191944 4 Parity 2 08/21/2019 9:14am BP Systolic 136 mmHg BP Diastolic 86 mmHg Height 65 inches 5'5" Weight 182.00 lb BMI (Body Mass Index) 30.3 kg/m2 Last Menstrual Period 1412687 4 Parity 2 Results Test Acquired Date Facility Test Result H/L Range Note Laboratory test 05/29/2019 [facility] Cytology SEE RESULT [address] [place] [address] BELOW [phone] 1 SEE RESULT BELOW Name: SARANYA LEWIS : [address]: Domonique Vega MD Acct: [id number] Unit: [id number] AGE: 29 Location: [facility] Re05/29/19 SEX: F Status: REG REF SPEC: [id number] RYAN: 05/29/19-[address] [facility] [address]: Domonique Vega MD REQ: [id number] RECD: 05/29/19 STATUS: MARK FARIAS DR: Faviola Coto MD _ ORDERED: TP IMAGE ANALYS COMMENTS: [id number] FINAL DIAGNOSIS Negative for Intraepithelial lesion or [...] by and Reported on: MENDY Banegas (ASCP) [id number] This Pap test was evaluated with the assistance of the [employer] Test Imaging System. Due to cytologic findings at the mail room clerk microscope, comprehensive manual rescreening by a Street Flusher Driver may be required. The Pap Smear is [...] years. END OF REPORT DEPARTMENT OF PATHOLOGY, [address] [place] [address] Sammy Hart M.D. Director [facility] # [id number] Procedures Date Code Description Status 09/14/2019 [address]7418 I & D Abscess Bartholin's Gland Completed Medical Devices Description No Information Available Encounters Type Date Location Provider Dx Diagnosis Office Visit 09/14/2019 [facility] Domonique Vega, N75.1 Abscess of Bartholin's 2:30p MD gland Office Visit 08/21/2019 [facility] Domonique Vega, N94.5 Secondary dysmenorrhea 9:00a Z97.5 Presence of (intrauterine) contraceptive device Z11.3 Encntr screen for infections w sexl mode of transmiss Office Visit 05/29/2019 11:00a [facility] Domonique Vega, Z01.411 Encntr for file conversion operator MD exam (general) (routine) w abnormal findings [...] 8:30 am - Domonique Vega MD at [facility] - Domonique Vega MDN75.1 Abscess of Bartholin's glandNew Medication: Sulfamethoxazole/Trimethoprim DS 800-160 mg - take 1 tab by mouth twice a day x5 daysComments:Instructed on twice daily sitz baths and keeping area clean. Will send script for abx. Should call if no improvement in 48hrs. Functional Status Functional Condition Comment Date Status Glasses Active Mental Status Description No Information Available Referrals Description No Information Available
--- NOTE | 2019-10-31 21:08 | ED ---
Lower Extremity - HPI Summary HPI Summary: 29 year old female presents with right calf pain for past three days. She states the pain started in her ankle and moved to her calf. She denies any chest pain shortness breath. She is concerned she has blood clot. She does have family history of blood clots. no recent travel. She is not on control. Is nonsmoker. No chest pain or shortness breath. No injury. She denies any rash. - History of Current Complaint Chief Complaint: EDExtremityLower Stated Complaint: RT LEG CLOT PER PT Time Seen by Provider: 10/31/19 20:49 Hx Last Menstrual Period: Jun 07, 2019 Pain Intensity: 8 - Allergies/Home Medications Allergies/Adverse Reactions: Allergies Allergy/AdvReac Type Severity Reaction Status Date / Time No Known Allergies Allergy Verified 10/31/19 20:36 Home Medications: Home Medications Norethindrone-E.estradiol-Iron [Blisovi Fe 07/31 1-20 mg-Mcg] 1 tab PO DAILY [History Confirmed 10/31/19] PMH/Surg Hx/FS Hx/Imm Hx Endocrine/Hematology History: Reports: Hx Diabetes - Typ II Denies: Hx Thyroid Disease Cardiovascular History: Reports: Hx Hypertension - with Respiratory History: Denies: Hx Asthma, Hx Chronic Obstructive Pulmonary Disease (COPD) GI History: Denies: Hx Ulcer History: Reports: Other Problems/Disorders - Proteinuria, in process of w/ u, preeclampsia Psychiatric History: Reports: Hx Anxiety, Hx Depression - no record of treatment Denies: Hx Attention Deficit Hyperactivity Disorder, Hx Eating Disorder, Hx Panic Disorder, Hx Post Traumatic Stress Disorder, Hx Inpatient Treatment, Hx Community Mental Health Tx, Hx Schizophrenia, Hx Bipolar Disorder, Hx Suicide Attempt, Hx of Violent Episodes Against Others, Hx Substance Abuse, Other Psychiatric Issues/Disorders - Surgical History Surgery Procedure, Year, and Place: 2 c sections- , 2016 - Immunization History Date of Tetanus Vaccine: up to date Infectious Disease History: Yes Infectious Disease History: Denies: Hx Hepatitis, Hx Human Immunodeficiency Virus (HIV), Traveled Outside the [place] in Last 30 Days - Family History Known Family History: Positive: Blood Disorder, Non-Contributory - Social History Alcohol Use: Rare Hx Substance Use: No Substance Use Type: Reports: None Hx Tobacco Use: No Smoking Status (MU): Never Smoked Tobacco Have You Smoked in the Last Year: No Review of Systems Negative: Fever Negative: Chest Pain Negative: Shortness Of Breath Positive: Myalgia - right calf pain All Other Systems Reviewed And Are Negative: Yes Physical Exam Triage Information Reviewed: Yes Vital Signs On Initial Exam: Initial Vitals Temp Pulse Resp BP Pulse Ox 97.1 F 92 14 150/98 99 10/31/19 20:34 10/31/19 20:34 10/31/19 20:34 10/31/19 20:34 10/31/19 20:34 Vital Signs Reviewed: Yes Appearance: Positive: Well-Appearing Skin: Positive: Warm, Dry Head/Face: Positive: Normal Head/Face Inspection Eyes: Positive: Normal, Conjunctiva Clear ENT: Positive: Pharynx normal Respiratory/Lung Sounds: Positive: Clear to Auscultation, Breath Sounds Present Cardiovascular: Positive: Normal, RRR Musculoskeletal: Positive: Other - tenderness along medial aspect of right calf to ankle, good pulses, no edema Neurological: Positive: Normal Psychiatric: Positive: Normal Procedures - Sedation Patient Received Moderate/Deep Sedation with Procedure: No Diagnostics - Vital Signs Vital Signs Temp Pulse Resp BP Pulse Ox 10/31/19 20:34 97.1 F 92 14 150/98 99 - Laboratory Lab Statement: Any lab studies that have been ordered have been reviewed, and results considered in the medical decision making process. - Ultrasound No standard instances Ultrasound Interpretation Completed By: Radiologist Summary of Ultrasound Findings: IMPRESSION: No deep vein thrombosis in the veins visualized in the right lower extremity. Lower Extremity Course/Dx - Course Course Of Treatment: 29 year old female presents with right calf pain for past three days. She states the pain started in her ankle and moved to her calf. She denies any chest pain shortness breath. She is concerned she has blood clot. She does have family history of blood clots. no recent travel. She is not on control. Is nonsmoker. No chest pain or shortness breath. No injury. She denies any rash. On exam has tenderness over right medial calf. pain does extend ankle. Neurovascular intact. Ultrasound shows no DVT. Told to ice and elevate. Patient understand and agrees with plan. - Diagnoses Differential Diagnosis/HQI/PQRI: Positive: DVT, Sprain, Strain Provider Diagnoses: Right calf pain - Critical Care Time Critical Care Statement: Critical care time is provided exclusive of any time spent performing procedures. Discharge ED - Sign-Out/Discharge Documenting (check all that apply): Patient Departure - Discharge Plan Condition: Good Disposition: HOME Patient Education Materials: Leg Pain (ED) Referrals: Rohan Queen MD [Primary Care Provider] - Additional Instructions: apply ice, elevate Take Tylenol or ibuprofen every 6 hours for pain Follow up with primary Return to ED if develop any new or worsening symptoms - Billing Disposition and Condition Condition: GOOD Disposition: Home
[2019-10-31 21:57] VITALS: BP 128/94
== END 2019-10-31 21:55 | disposition home or self-care (01) ==
LOC: ED 20:32
DX: M79.661 Pain in right lower leg (principal); Z79.3 Long term (current) use of hormonal contraceptives; E11.9 Type 2 diabetes mellitus without complications; F32.9 Major depressive disorder, single episode, unspecified; F41.9 Anxiety disorder, unspecified
CPT/HCPCS: 99282